=== PATIENT | female | born 1970 | race Caucasian/White ===

== ENCOUNTER 2022-10-02 14:50 | Outpatient (CLI) | payer MEDICAID, SELFPAY ==
--- NOTE | 2022-10-02 15:20 | CRLHL7_ITS ---
For Patients: As a result of the Century Cures Act, medical imaging exams and procedure reports are released immediately into your electronic medical record. You may view this report before your referring provider. If you have questions, please contact your health care provider. BILATERAL SCREENING MAMMOGRAM WITH COMPUTER-AIDED DETECTION AND TOMOSYNTHESIS TECHNIQUE: CC and MLO views were obtained. These mammographic images have been obtained using full-field digital technique. These mammographic images were interpreted with the benefit of computer-aided detection. Breast Tomosynthesis was used in this interpretation. COMPARISON FILM: 08/08/21, 04/12/20, 10/13/18. FINDINGS: There are scattered areas of fibroglandular density IMPRESSION: There is no radiographic evidence for malignancy. ASSESSMENT: BI-RADS Category 1: Negative RECOMMENDATION: Routine screening mammogram in 1 year. A lay language report of this examination will be provided to the patient. Nael Verdin M.D. Diagnostic Radiologist [email or web address] DEANA/Dictated by: Nael Verdin MD @ 10/03/2022 12:16:00 PM (Electronically Signed)
== END 2022-10-02 14:51 | disposition home or self-care (01) ==
DX: Z12.31 Encounter for screening mammogram for malignant neoplasm of breast (principal)
CPT/HCPCS: 77063; 77067

== ENCOUNTER 2023-10-13 11:14 | Outpatient (CLI) | payer MEDICAID, SELFPAY ==
--- OUTSIDE RECORDS SUMMARY | 2023-10-13 11:19 | XMS_ITS | Encounter Summary ---
Author Name Unknown Organization [facility] Address [address] [place] [address] Care Team Providers Care Media Operator Name Role Phone Monica Gonzalez MD Primary Care Provider [phone] Reason for Visit * Reason Onset Date Comments Refill 09/17/2023 VYVANSE 70 MG ca psule Encounter Details Date Type Department Care Team Description 09/17/2023 Refill [facility] [address] [place] [id number] Ros Schumacher MD [address] [place] [id number] Refill (VYVANSE 70 MG capsule) Social History Tobacco Use Types Packs/Day Years Used Date Smoking Tobacco: Former Cigarettes 0.5 1 0 10/03/2011 - 10/03/2012 Smokeless Tobacco: Never Alcohol Use Standard Drinks/Week Comments Not Currently 0 (1 standard drink = 0.6 oz pur e alcohol) maybe 2 times a year Sex and Gender Information Value Date Recorded Sex Assigned at Female 04/02/2021 3:17 PM CDT Gender Identity Female 04/02/2021 3:17 PM CDT Sexual Orientation Straight 04/02/2021 3: 17 PM CDT documented as of this encounter Nursing Notes * Interface, Out Surescripts Prov Query - 09/17/2023 2:57 PM CST VYVANSE 70 MG capsule ADHD (controlled substance) -> Medication cannot be delegated. Last qualifying visit: 08/20/2023 (with ROS SCHUMACHER) Next scheduled visit: None Last ordered by ROS SCHUMACHER: 08/20/2023 (28 days ago) QTY: 30, Refills: 0, Sig: take 1 capsule(70 mg) by mouth daily. (unchanged) [employer] Embedded Refills, Reference: [id number], 09/17/2023 2:57:26 PM LENS GRINDER, [place]: Refill Centralized Services - Primary Care ([id number]) GRINDER * Interface, Out [facility] Prov Query - 09/17/2023 2:57 PM CST No Careplan note found by [employer]. GRINDER * Renetta Lewis - 09/17/2023 2:56 PM CST Medication Refill Patient called for refill - routed refill request to central statistician mathematical GRINDER documented in this encounter Plan of Treatment Upcoming Encounters Date Type Department Care Team Description 10/26/2023 4:00 PM LENS GRINDER Appointment [facility] [address] [place] [address] Renetta Montoya, [facility] [address] [place], [place] [phone] documented as of this encounter Visit Diagnoses Diagnosis Attention deficit disorder, unspecified hyperactivity presence documented in this encounter Care Teams Media Operator Relationship Specialty Start Date End Date Monica Gonzalez MD [address] [place] [id number] PCP - General 11/27/09 documented as of this encounter
--- OUTSIDE RECORDS SUMMARY | 2023-10-13 11:19 | XMS_ITS | Encounter Summary ---
Author Name Unknown Organization [facility] Address [address] [address] Care Team Providers Care Payroll Machine Operator Name Role Phone Monica Gonzalez MD Primary Care Provider [phone] Reason for Visit * Procedure/Equipment (Routine) - Incomplete Specialty Diagnoses / Procedures Referred By Contac t Referred To Contact Diagnoses Pain in both knees, unspecified chronicity Chondromalacia of knee, unspecified laterality Procedures US Aspiration/Injection Major Joint West Robles MD [address] [place] [address] [id number] [id number] Referral ID Status Reason Start Date Expiration Date V isits Requested Visits Authorized [id number] Incomplete 09/29/2023 12/28/2024 1 1 Encounter Details Date Type Department Care Team Description 10/07/2023 3:15 PM INTERNET MARKETING EXECUTIVE Ancillary Procedure [facility] [address] [facility] [place], [place] [address] West Robles MD [address] [place] [address] [address] [place] [id number] Pain in both knees, unspecified chronicity; Chondromalacia of knee, unspecified laterality Social History Tobacco Use Types Packs/Day Years [...] PM CDT documented as of this encounter Plan of Treatment Upcoming Encounters Date Type Department Care Team Description 10/26/2023 4:00 PM INTERNET MARKETING EXECUTIVE Appointment [facility] [address] [place] [address] Renetta Montoya, [facility] [address] [place] [address] documented as of this encounter Procedures Procedure Name Priority Date/Time Associated Diagnosis Comments US ASPIRATION/INJECTIO N MAJOR JOINT Routine 10/07/2023 2:44 PM INTERNET MARKETING EXECUTIVE Pain in both knees, unspecified chronicity Chondromalacia of knee, unspecified laterality documented in this encounter Results * US Aspiration/Injection Major Joint (10/07/2023 2:44 PM INTERNET MARKETING EXECUTIVE) Anatomical Region Laterality Modality Ultrasound 10/07/2023 2:13 PM INTERNET MARKETING EXECUTIVE Impressions 10/07/2023 3:26 PM INTERNET MARKETING EXECUTIVE PROCEDURE: ??The risks, benefits, and alternatives were discussed with the patient who gave full written and verbal consent to proceed. A final pause was performed prior to the procedure to verify patient identification and site of procedure. Using local anesthesia, sterile technique, and ultrasound guidance, a 22-gauge needle was used to inject 6 mL (48 mg) of Synvisc One into the left knee joint. Needle placement was confirmed under direct visualization using ultrasound and permanent images were saved. There were no immediate complications. Narrative Procedure Note West Robles MD - 10/07/2023 IMPRESSION PROCEDURE: The risks, benefits, and alternatives were discussed with thepatient who gave full written and verbal consent to proceed. A final pausewas performed prior to the procedure to verify patient identification andsite of procedure. Using local anesthesia, sterile technique, andultrasound guidance, a 22-gauge needle was used to inject 6 mL (48 mg) ofSynvisc One into the left knee joint. Needle placement was confirmed underdirect visualization using ultrasound and permanent images were saved.There were no immediate complications. West Robles MD RAD US documented in this encounter Visit Diagnoses Diagnosis Pain in both knees, unspecified chronicity Chondromalacia of knee, unspecified laterality documented in this encounter Administered Medications Inactive Administered Medications - up to 3 most recent administrations Medication Order MAR Action Action Date Dose Rate Site hylan (SYNVISC ONE) 48 MG/6ML injection 48 mg 48 mg, Intra-articular, ONCE, On Thu10/07/23 at 1500, For 1 dose Given 10/07/2023 2:43 PM INTERNET MARKETING EXECUTIVE 48 mg documented in this encounter Care Teams Payroll Machine Operator Relationship Specialty Start Date End Date Monica Gonzalez MD [address] [place] [address] PCP - General 11/27/09 documented as of this encounter
--- OUTSIDE RECORDS SUMMARY | 2023-10-13 11:19 | XMS_ITS | Encounter Summary ---
Author Name Unknown Organization [facility] Address [address], [place] [address] Care Team Providers Care Reference And Instruction Librarian Name Role Phone Monica Gonzalez MD Primary Care Provider [phone] Reason for Visit * Procedure/Equipment (Routine) - Incomplete Specialty Diagnoses / Procedures Referred By Contac t Referred To Contact Diagnoses Pain in both knees, unspecified chronicity Procedures XR Knee Rt 3 Views West Robles MD [address] [place] [address] Referral ID Status Reason Start Date Expiration Date V isits Requested Visits Authorized [id number] Incomplete 09/03/2023 12/02/2024 1 1 Encounter Details Date Type Department Care Team Description 09/03/2023 2:45 PM GROVE WORKER Ancillary Procedure [facility] [address] [place], [place] [phone] West Robles MD [address] [place] [address] Social History Tobacco Use Types Packs/Day Years [...] Department Care Team Description 10/26/2023 4:00 PM GROVE WORKER Appointment [facility] [address] [place] [address] Renetta Montoya, [facility] [address] [place] [address] documented as of this encounter Procedures Procedure Name Priority Date/Time Associated Diagnosis Comments XR KNEE RT 3 VIEWS Routine 09/03/2023 3: 01 PM GROVE WORKER Pain in both knees, unspecified chronicity XR KNEE LT 3 VIEWS Routine 09/03/2023 3: 01 PM GROVE WORKER Pain in both knees, unspecified chronicity documented in this encounter Results * XR Knee Rt 3 Views (09/03/2023 3:01 PM GROVE WORKER) Anatomical Region Laterality Modality Lower Extremity, Knee Digital Ra diography 09/03/2023 3:01 PM GROVE WORKER Impressions 09/03/2023 3:03 PM GROVE WORKER COMPARISON: ??01/16/2022 FINDINGS: ??Right knee 3 views: Minimal narrowing of the medial compartment. No significant secondary degenerative changes. Bones and joint spaces appear otherwise normal. No fracture or effusion. Left knee 3 views: Bones and joint spaces appear within normal limits. Narrative Procedure Note Vikas Serna MD - 09/03/2023 IMPRESSION COMPARISON: 01/16/2022 FINDINGS: Right knee 3 views: Minimal narrowing of the medialcompartment. No significant secondary degenerative changes. Bones andjoint spaces appear otherwise normal. No fracture or effusion. Left knee 3 views: Bones and joint spaces appear within normal limits. West Robles MD RAD GD * XR Knee Lt 3 Views (09/03/2023 3:01 PM GROVE WORKER) Anatomical Region Laterality Modality Lower Extremity, Knee Digital Ra diography 09/03/2023 3:01 PM GROVE WORKER Impressions 09/03/2023 3:03 PM GROVE WORKER COMPARISON: ??01/16/2022 FINDINGS: ??Right knee 3 views: Minimal narrowing of the medial compartment. No significant secondary degenerative changes. Bones and joint spaces appear otherwise normal. No fracture or effusion. Left knee 3 views: Bones and joint spaces appear within normal limits. Narrative Procedure Note Vikas Serna MD - 09/03/2023 IMPRESSION COMPARISON: 01/16/2022 FINDINGS: Right knee 3 views: Minimal narrowing of the medialcompartment. No significant secondary degenerative changes. Bones andjoint spaces appear otherwise normal. No fracture or effusion. Left knee 3 views: Bones and joint spaces appear within normal limits. West Robles MD RAD GD documented in this encounter Visit Diagnoses Not on filedocumented in this encounter Care Teams Reference And Instruction Librarian Relationship Specialty Start Date End Date Monica Gonzalez MD [address] [place] [address] PCP - General 11/27/09 documented as of this encounter
--- OUTSIDE RECORDS SUMMARY | 2023-10-13 11:19 | XMS_ITS | Encounter Summary ---
Author Name Unknown Organization [facility] Address [address], [place] [address] Care Team Providers Care Automotive Glazier Name Role Phone Monica Gonzalez MD Primary Care Provider [phone] Reason for Visit * Procedure/Equipment (Routine) - Incomplete Specialty Diagnoses / Procedures Referred By Contac t Referred To Contact Diagnoses Pain in both knees, unspecified chronicity Procedures XR Knee Rt 3 Views West Robles MD [address] [facility] [place] [address] Referral ID Status Reason Start Date Expiration Date V isits Requested Visits Authorized [id number] Incomplete 09/03/2023 12/02/2024 1 1 Encounter Details Date Type Department Care Team Description 09/03/2023 2:35 PM PALLET STONE POSITIONER Ancillary Procedure [facility] [address] [place], [place] [address] West Robles MD [address] [address] [place] [id number] Pain in both knees, unspecified chronicity Social History Tobacco Use Types Packs/Day Years [...] Department Care Team Description 10/26/2023 4:00 PM PALLET STONE POSITIONER Appointment [facility] [address] [place] [address] Renetta Montoya, [facility] [address] [place], [place] [phone] documented as of this encounter Procedures Procedure Name Priority Date/Time Associated Diagnosis Comments XR KNEE RT 3 VIEWS Routine 09/03/2023 3: 01 PM PALLET STONE POSITIONER Pain in both knees, unspecified chronicity XR KNEE LT 3 VIEWS Routine 09/03/2023 3: 01 PM PALLET STONE POSITIONER Pain in both knees, unspecified chronicity documented in this encounter Results * XR Knee Rt 3 Views (09/03/2023 3:01 PM PALLET STONE POSITIONER) Anatomical Region Laterality Modality Lower Extremity, Knee Digital Ra diography 09/03/2023 3:01 PM PALLET STONE POSITIONER Impressions 09/03/2023 3:03 PM PALLET STONE POSITIONER COMPARISON: ??01/16/2022 FINDINGS: ??Right knee 3 views: [...] Knee Lt 3 Views (09/03/2023 3:01 PM PALLET STONE POSITIONER) Anatomical Region Laterality Modality Lower Extremity, Knee Digital Ra diography 09/03/2023 3:01 PM PALLET STONE POSITIONER Impressions 09/03/2023 3:03 PM PALLET STONE POSITIONER COMPARISON: ??01/16/2022 FINDINGS: ??Right knee 3 views: [...] GD documented in this encounter Visit Diagnoses Diagnosis Pain in both knees, unspecified chronicity documented in this encounter Care Teams Automotive Glazier Relationship Specialty Start Date End Date Monica Gonzalez MD [address] [place] [address] PCP - General 11/27/09 documented as of this encounter
--- OUTSIDE RECORDS SUMMARY | 2023-10-13 11:19 | XMS_ITS | Encounter Summary ---
Author Name Unknown Organization [facility] Address [address], [place] [address] Care Team Providers Care Tool Dispatcher Name Role Phone Monica Gonzalez MD Primary Care Provider [phone] Reason for Visit * Procedure/Equipment (Routine) - Incomplete Specialty Diagnoses / Procedures Referred By Contac t Referred To Contact Diagnoses Pain in both knees, unspecified chronicity Chondromalacia of knee, unspecified laterality Procedures US Aspiration/Injection Major Joint West Robles MD [address] [place] [address] [place] [id number] Referral ID Status Reason Start Date Expiration Date V isits Requested Visits Authorized [id number] Incomplete 09/29/2023 12/28/2024 1 1 Encounter Details Date Type Department Care Team Description 10/07/2023 2:30 PM RICE DRIER OPERATOR Ancillary Procedure [facility] [address], [place] [address] West Robles MD [address] [place] [address] [address] [place] [address] Pain in both knees, unspecified chronicity; Chondromalacia [...] Department Care Team Description 10/26/2023 4:00 PM RICE DRIER OPERATOR Appointment [facility] [address] [place] [address] Renetta Montoya, [facility] [address] [place] [address] documented as of this encounter Procedures Procedure Name Priority Date/Time Associated Diagnosis Comments US ASPIRATION/INJECTIO N MAJOR JOINT Routine 10/07/2023 2:45 PM RICE DRIER OPERATOR Pain in both knees, unspecified chronicity Chondromalacia of knee, unspecified laterality documented in this encounter Results * US Aspiration/Injection Major Joint (10/07/2023 2:45 PM RICE DRIER OPERATOR) Anatomical Region Laterality Modality Ultrasound 10/07/2023 2:13 PM RICE DRIER OPERATOR Impressions 10/07/2023 3:27 PM RICE DRIER OPERATOR PROCEDURE: ??The risks, benefits, and alternatives were discussed with the patient who gave full written and verbal consent to proceed. A final pause was performed prior to the procedure to verify patient identification and site of procedure. Using local anesthesia, sterile technique, and ultrasound guidance, a 22-gauge needle was used to inject 6 mL (48 mg) of Synvisc One into the right knee joint. Needle placement was confirmed under [...] mL (48 mg) ofSynvisc One into the right knee joint. Needle placement was confirmedunder direct visualization using ultrasound and permanent images weresaved. There were no immediate complications. West Robles MD [...] at 1500, For 1 dose Given 10/07/2023 2:44 PM RICE DRIER OPERATOR 48 mg documented in this encounter Care Teams Tool Dispatcher Relationship Specialty Start Date End Date Monica Gonzalez MD [address] [place] [address] PCP - General 11/27/09 documented as of this encounter
--- OUTSIDE RECORDS SUMMARY | 2023-10-13 11:19 | XMS_ITS | Encounter Summary ---
Author Name Unknown Organization [facility] Address [address], [place] [address] Care Team Providers Care Mortar Man Name Role Phone Monica Gonzalez MD Primary Care Provider [phone] Reason for Referral * Procedure/Equipment (Routine) - Incomplete Specialty Diagnoses / Procedures Referred By Contac t Referred To Contact Diagnoses Pain in both knees, unspecified chronicity Chondromalacia of knee, unspecified laterality Procedures US Aspiration/Injection Major Joint West Robles MD [address] [place] [address] [place] [address] Referral ID Status Reason Start Date Expiration Date V isits Requested Visits Authorized [id number] Incomplete 09/29/2023 12/28/2024 1 1 CUTTER * Procedure/Equipment (Routine) - Incomplete Specialty Diagnoses / Procedures Referred By Contac t Referred To Contact Diagnoses Pain in both knees, unspecified chronicity Chondromalacia of knee, unspecified laterality Procedures US Aspiration/Injection Major Joint West Robles MD [address] [place] [address] Referral ID Status Reason Start Date Expiration Date V isits Requested Visits Authorized [id number] Incomplete 09/29/2023 12/28/2024 1 1 CUTTER Encounter Details Date Type Department Care Team Description 09/29/2023 Notes/Orders [facility] [address] [facility] [place] [address] West Robles MD [address] [facility] [place] [address] Pain in both knees, unspecified chronicity (Primary Dx); Chondromalacia of knee, unspecified laterality Social History [...] Department Care Team Description 10/26/2023 4:00 PM COAL CUTTER Appointment [facility] [address] [place] [address] [facility] [address] [place] [address] documented as of this encounter Results * US Aspiration/Injection Major Joint (10/07/2023 2:45 PM COAL CUTTER) Anatomical Region Laterality Modality Ultrasound 10/07/2023 2:13 PM COAL CUTTER Impressions 10/07/2023 3:27 PM COAL CUTTER PROCEDURE: ??The risks, benefits, and alternatives were [...] immediate complications. West Robles MD RAD US * US Aspiration/Injection Major Joint (10/07/2023 2:44 PM COAL CUTTER) Anatomical Region Laterality Modality Ultrasound 10/07/2023 2:13 PM COAL CUTTER Impressions 10/07/2023 3:26 PM COAL CUTTER PROCEDURE: ??The risks, benefits, and alternatives were [...] Diagnoses Diagnosis Pain in both knees, unspecified chronicity- Primary Chondromalacia of knee, unspecified laterality Pain in both knees, unspecified chronicity Chondromalacia of knee, unspecified laterality Pain in both knees, unspecified chronicity Chondromalacia of knee, unspecified laterality documented in this encounter Care Teams Mortar Man Relationship Specialty Start Date End Date Monica Gonzalez MD [address] [place] [address] PCP - General 11/27/09 documented as of this encounter
--- OUTSIDE RECORDS SUMMARY | 2023-10-13 11:19 | XMS_ITS | Clinical Summary ---
Author Name Unknown Organization [facility] Address [address] [place] [address] Care Team Providers Care Business Applications Developer Name Role Phone Monica Gonzalez MD Primary Care Provider [phone] Source Comments You are receiving this document as you are listed as the primary care provider,follow-up provider, or the patient has been referred to you for consultation.This is in compliance with the Medicare and[facility] E[facility] Incentive Program,which states Providers who transition their patient to another setting of careor provider of care or refers their patient to another provider of care shouldprovide summary care record for each transition of care or referral. [facility] Allergies No known active allergies Medications Medication Sig Dispensed Refills Start Date End Date Status MULTI-DAY VITAMINS OR None Entered 0 Active Probiotic Product (PROBIOTIC DAILY OR) Insync probiotic 0 Active Phentermine HCl (ADIPEX-P) 37.5 MG tabletIndications:W eight gain Take 1 Tab by mouth daily before breakfast. 30 Tab 3 01/20/2018 Active cholecalciferol (VITAMIN D3) 125 MCG (5000 UT) capsule 0 Active valACYclovir (VALTREX) 1 g tablet Take 0.5 Tablets (500 mg) by mouth daily. 45 Tablet 2 04/22/2022 Active topiramate (TOPAMAX) 100 MG tablet Take 1 Tablet (100 mg) by mouth two times a day. 0 01/16/2022 Active minoxidil (LONITEN) 2.5 MG tablet Take 1 Tablet (2.5 mg) by mouth two times a day. 0 06/27/2022 Active sodium fluoride dental (PREVIDENT) 1.1 % gel Apply thin ribbon to teeth with toothbrush for at least 1 minute. Spit out gel and wait to eat or drink for 30 minuets. 60 g 6 02/17/2023 Active tretinoin (RETIN-A) 0.05 % cream APPLY THIN FILM TO AFFECTED AREAS NIGHTLY 45 g 3 06/08/2023 Active losartan (COZAAR) 50 MG tablet Take 1 Tablet (50 mg) by mouth daily. 0 07/13/2023 Active ALBUterol sulfate HFA (VENTOLIN HFA) 108 (90 Base) MCG/ACT inhaler Inhale 1-2 Puffs every 4 hours as needed for Wheezing. 36 g 3 08/20/2023 Active buPROPion (WELLBUTRIN XL) 150 MG 24 hour release tablet Take 3 Tablets (450 mg) by mouth daily. 270 Tablet 3 08/20/2023 Active VYVANSE 70 MG capsuleIndications: Attention deficit disorder, unspecified hyperactivity presence Take 1 Capsule (70 mg) by mouth daily. 30 Capsule 0 09/17/2023 Active VYVANSE 70 MG capsuleIndications: Attention deficit disorder, unspecified hyperactivity presence Take 1 Capsule (70 mg) by mouth daily. 30 Capsule 0 08/20/2023 3 Discontinue d(*Med change OR same med OR reorder, new dose/direct ions) Active Problems Problem Noted Date Diagnosed Date Chondromalacia of knee 09/03/2023 Osteopenia 10/20/2022 White coat syndrome with diagnosis of hypertensi on 01/20/2022 Migraine without aura and wi thout status migrainosus, not intractable 03/19/2020 Chronic left-sided low back pain without sciatic a 03/19/2020 Bilateral chronic knee pain 10/31/2019 Depression with anxiety 01/22/2016 Screening for malignant neoplasm of cervix 12/27 Overview: 2009 NILM 2010 ASCUS hpv negative 2011 NILM 2015 NILM, hpv negative 2019 NILM HPV negative 49 y.o. PLAN, per ASCCP Guidelines: Cotest 03/2025 History of basal cell cancer 08/28/2014 Liver cyst 12/30/2013 Overview: Mri done- would like u/s to recheck in 6 months U/s 05/2023- appeared smaller- appears benign ADD (attention deficit disorder) 10/05/2013 Overview: Stable on vyvanse Family history of skin cancer 11/05/2011 AK (actinic keratosis) 11/05/2011 Family history of breast cancer 09/04/2010 Herpes simplex virus (HSV) infection 04/27/2006 Overview: Epic Resolved Problems Problem Noted Date Diagnosed Date Resolved Date IUD (intrauterine device) in place 04/04/2021 10/08/2022 Overview: Paragard 05/2017 White coat syndrome without hypertension 03/15/2020 01/20/2022 Anxiety 10/05/2013 11/22/2017 Tobacco use disorder 10/05/2013 015 Ulnar nerve entrapment at elbow 10/05/2013 12/19/2014 Smoker 11/05/2011 05/18/2013 Hair loss 09/04/2010 11/20/2012 Major depressive disorder, r ecurrent episode, severe 12/04/2009 09/04/2010 Overview: Epic Overweight 12/04/2009 09/04/2010 Depressive disorder 12/06/2007 12/05/19 10 Overview: 10/29-Wellbutrin ; Depressive disorder, not elsewhere classified (HRC) Breast hypertrophy 10/30/2006 2 Contraceptive management 04/27/2006 Overview: Triphasil worked well-when switched to generic did not like this Loestrin-spotted continuously 11/26-Guera Epic Calculus of kidney 11/06/2005 6 Encounters Date Type Department Care Team Description 10/07/2023 3:15 PM FLOWERS SALESPERSON Ancillary Procedure [facility] [address] [place] [address] West Robles MD Pain in both knees, unspecified chronicity; Chondromalacia of knee, unspecified laterality 10/07/2023 2:30 PM FLOWERS SALESPERSON Ancillary Procedure [facility] [address] [place] [address] West Robles MD Pain in both knees, unspecified chronicity; Chondromalacia of knee, unspecified laterality 09/29/2023 Notes/Orders [facility] [address] [place] [id number] West Robles MD Pain in both knees, unspecified chronicity (Primary Dx); Chondromalacia of knee, unspecified laterality 09/17/[address] [phone] Stephanie Schumacher MD Refill (VYVANSE 70 MG capsule) 09/03/2023 2:45 PM FLOWERS SALESPERSON Ancillary Procedure [facility] [address] [place] [id number] West Robles MD 09/03/2023 2:40 PM FLOWERS SALESPERSON Office Visit [facility] [address] [place] [id number] West Robles MD Chondromalacia of knee, unspecified laterality (Primary Dx); Pain in both knees, unspecified chronicity 09/03/2023 2:35 PM FLOWERS SALESPERSON Ancillary Procedure [facility] [address] [place] [id number] West Robles MD Pain in both knees, unspecified chronicity 08/20/2023 4:40 PM FLOWERS SALESPERSON Lab Visit [facility] [address] [place] [phone] Memory changes 08/20/2023 4:25 PM FLOWERS SALESPERSON Ancillary Procedure [facility] [address] [place] [phone] Stephanie Schumacher MD Left hip pain 08/20/2023 3:20 PM FLOWERS SALESPERSON Office Visit [address] [phone] Stephanie Schumacher MD Attention deficit disorder, unspecified hyperactivity presence (Primary Dx); Weight gain; Lesion of lip; Left hip pain; Chronic pain of both knees; PTSD (post-traumatic stress disorder) (HRC); Depression with anxiety (HRC); Memory changes; Encounter for immunization; Hair loss 08/20/2023 E-Visit [facility] [address] [place] [address] Mychart, Generic Provider 07/27/2023 2:40 PM FLOWERS SALESPERSON Office Visit [facility] [address] [place] [address] Patricia Tuttle N, OD Examination of eyes and vision (Primary Dx); Presbyopia; Dermatochalasis of both upper eyelids 07/16/2023 Refill [facility] [address] [place] [address] Monica Gonzalez MD Refill ( lisdexamfetamine (VYVANSE) 70 MG capsule) from Last 3 Months Immunizations Name Administration Dates Next Due Flu Vac (3+ yrs) 06/30/2012, 1,06/04/2010,2008,08/02/2008,07/08/2007,08/03/2006,1 10/06/2004,09/01/2002,08/31/2001 Flu Vac Preserv Free (3+yrs) 06/04/2010 Fluzone Qiv Multidose Vial 0 .25 (6-35 Mos) 05/18/2013 [id number] 08/22/2009 H1n1 Laiv Medimmune 2-49 Yr (Intranasal) 08/22/2009 HepB Adult (Engerix-B, 20+ y rs, 3 dose series) 05/02/2002,08/31/2001,04/08/2001 Influenza (Flucelvax), Prese rv Free QIV 06/26/2023,05/29/2022,06/13/2021,2019 Influenza IIV3 (Trivalent) F luzone Highdose, 65+ Yrs (05186) 04/21/2013 Influenza IIV4 (Quadrivalent ) 0.5mL (20312) 06/08/2019,06/07/2018,06/10/2017,2014,05/31/2014,05/18/2013 Influenza Vaccine Q/LAIV Int ranasal 2-49 yrs (Imm Clinic) 05/31/2014 Influenza, Unspecified Formulation 07/02/2016 Gifty COVID-19 Vaccine 07/30/2021,12/25/2020 MCV4 Migdalia 2m.+ (two vial) 10/31/2016 Pfizer / 12+ 08/20/2023 Pfizer Bivalent 12+ 08/07/2022 Td 09/20/2000,04/08/2000 Td (7+ yrs) 06/08/2019 Tdap 05/25/2009 Varicella 11/23/2001(Deferred: Immune by Alexei hardin) Zoster RZV (Shingrix) 06/26/2023,02/20/2023 Family History * Patient is adopted Medical History Relation Name Comments Coronary Artery Disease Father Alcohol/Drug Abuse Mother Coronary Artery Disease Maternal Grandfather CHF Coronary Artery Disease Maternal Grandmother and MGF Glaucoma Maternal Grandmother Diabetes, Type II Other 1 MA Cancer, Breast Other 2 MGMA, MA with breast and ovarian, maternal cousin Cancer, Colon Negative Family History Cataract Negative Family History Hypertension Negative Family History Macular Degeneration Negative Family History Thyroid Disorder Negative Family History Relation Name Status Comments Father Alive Mother Alive Daughter Alive Ricky Maternal Grandfather Maternal Grandmother Other 1 Other 2 Paternal Grandfather Paternal Grandmother Sister 1 Alive Sister 2 Alive hafl Sister 3 Alive half Sister 4 Alive half Sister 5 Alive half Social History Tobacco Use Types Packs/Day Years [...] Orientation Straight 04/02/2021 3: 17 PM CDT Last Filed Vital Signs Vital Sign Reading Time Taken Comments Blood Pressure 130/85 08/20/2023 3:25 PM FLOWERS SALESPERSON Pulse 103 08/20/2023 3:25 PM FLOWERS SALESPERSON Temperature 36.7 ??C (98.1 ??F) 05/14/2023 2:34 PM CD T Respiratory Rate 18 10/17/2022 4:58 PM FLOWERS SALESPERSON Oxygen Saturation 100% 10/17/2022 4:58 PM FLOWERS SALESPERSON Inhaled Oxygen Concentration - - Weight 65.8 kg (145 lb) 09/03/2023 2:28 PM FLOWERS SALESPERSON Height 172.7 cm (5' 8) 09/03/2023 2:28 PM FLOWERS SALESPERSON Body Mass Index 22.05 09/03/2023 2:28 PM FLOWERS SALESPERSON Plan of Treatment Upcoming Encounters Date Type Department Care Team Description 10/26/2023 4:00 PM FLOWERS SALESPERSON Appointment [facility] [address] [place] [address] Renetta Montoya, [facility] [address] [place] [address] Health Maintenance Due Date Last Done Comments Adult Preventive Visit 04/04/2022 , 03/15/2020, 12/19/2014, Additional history exists Mammogram 08/08/2022 08/08/2021, 06/22, 05/18/2013, Additional history exists FIT Colon Cancer Screening 05/30/202405/30, 06/08/2022, 05/28/2021 Cholesterol 03/15/2025 03/15/2020, 11/21, 05/23/2009, Additional history exists Cervical Cancer Screening 04/11/20252019, 12/19/2014, 11/05/2011, Additional history exists DTaP/Tdap/Td (3 - Tdap) 06/08/2029 06/08/20 19, 05/25/2009, 09/20/2000, Additional history exists HepB Completed 05/02/2002, 08/21, 04/08/2001 MCV4 Aged Out 10/31/2016 No longer eligi ble based on patient's age to complete this topic HIV Screening (Preventive Services) Completed 08/16/2021, 05/18/2013, 04/26/2012, Additional history exists Hep C Screening (Preventive Services) Completed 08/16/2021, 05/18/2013, 04/26/2012, Additional history exists Influenza Completed 06/26/2023, 04/2022, 06/13/2021, Additional history exists Zoster/Shingles Completed 06/26/2023, 02/20/2023 COVID-19 Vaccine Completed 08/20/2023, , 07/30/2021, Additional history exists HepA Aged Out No longer eligi ble based on patient's age to complete this topic Hib Aged Out No longer eligi ble based on patient's age to complete this topic IPV (Polio) Aged Out No longer eligi ble based on patient's age to complete this topic Pneumococcal Aged Out No longer eligi ble based on patient's age to complete this topic Procedures Procedure Name Priority Date/Time Associated Diagnosis Comments US ASPIRATION/INJECTIO N MAJOR JOINT Routine 10/07/2023 2:45 PM [employer]OW[employer] SALESPERSON Pain in both knees, unspecified chronicity Chondromalacia of knee, unspecified laterality US ASPIRATION/INJECTIO N MAJOR JOINT Routine 10/07/2023 2:44 PM [employer]OWERS SALESPERSON Pain in both knees, unspecified chronicity Chondromalacia of knee, unspecified laterality XR KNEE RT 3 VIEWS Routine 09/03/2023 3: 01 PM [employer]ERS SALESPERSON Pain in both knees, unspecified chronicity XR KNEE LT 3 VIEWS Routine 09/03/2023 3: 01 PM FLOWERS SALESPERSON Pain in both knees, unspecified chronicity VITAMIN B12 ONLY Routine 08/20/2023 4:42 PM FLOWERS SALESPERSON Memory changes XR PELVIS AP W AP/LAT HIP LT Routine 08/20/2023 4:34 PM FLOWERS SALESPERSON Left hip pain from Last 3 Months Results * US Aspiration/Injection Major Joint (10/07/2023 2:45 PM FLOWERS SALESPERSON) Only the most recent of2 resultswithin the time period is included. Anatomical Region Laterality Modality Ultrasound 10/07/2023 2:13 PM FLOWERS SALESPERSON Impressions 10/07/2023 3:27 PM FLOWERS SALESPERSON PROCEDURE: ??The risks, benefits, and alternatives were [...] complications. West Robles MD RAD US * XR Knee Rt 3 Views (09/03/2023 3:01 PM FLOWERS SALESPERSON) Anatomical Region Laterality Modality Lower Extremity, Knee Digital Ra diography 09/03/2023 3:01 PM FLOWERS SALESPERSON Impressions 09/03/2023 3:03 PM FLOWERS SALESPERSON COMPARISON: ??01/16/2022 FINDINGS: ??Right knee 3 views: [...] Knee Lt 3 Views (09/03/2023 3:01 PM FLOWERS SALESPERSON) Anatomical Region Laterality Modality Lower Extremity, Knee Digital Ra diography 09/03/2023 3:01 PM FLOWERS SALESPERSON Impressions 09/03/2023 3:03 PM FLOWERS SALESPERSON COMPARISON: ??01/16/2022 FINDINGS: ??Right knee 3 views: [...] limits. West Robles MD RAD GD * Vitamin B12 Only (08/20/2023 4:42 PM FLOWERS SALESPERSON) Vitamin B12 784 213 - 816 pg/mL 08/20/2023 7:42 PM FLOWERS SALESPERSON [facility] Blood Venipuncture / Unknown 08/20/2023 4:42 PM FLOWERS SALESPERSON 08/20/2023 4:42 PM FLOWERS SALESPERSON Stephanie Schumacher MD LAB[facility] [address] [phone] * XR Pelvis AP W AP/Lat Hip Lt (08/20/2023 4:34 PM FLOWERS SALESPERSON) Anatomical Region Laterality Modality Pelvis, Hip Computed Radiogr aphy 08/20/2023 4:34 PM FLOWERS SALESPERSON Narrative 08/20/2023 7:31 PM FLOWERS SALESPERSON EXAM: XR PELVIS AP W AP/LAT HIP LT LOCATION: [facility] DATE: 08/20/2023 INDICATION: Left hip pain, Pain in left hip, PAIN COMPARISON: None. IMPRESSION: Degenerative change in the bilateral hips. Moderate degenerative change in the bilateral sacroiliac joints. No fracture or dislocation. Procedure Note Jay Damian MD - 08/20/2023 EXAM: XR PELVIS AP W AP/LAT HIP LT [facility] DATE: 08/20/2023 INDICATION: Left hip pain, Pain in left hip, PAIN COMPARISON: None. IMPRESSION: Degenerative change in the bilateral hips. Moderatedegenerative change in the bilateral sacroiliac joints. No fracture ordislocation. Stephanie Schumacher MD RAD GD from Last 3 Months Advance Directives Latest Code Status on File Code Status Date Activated Date Inactivated Comments None 10/12/2003 2:45 PM 10/12/2003 3:45 PM Care Teams Business Applications Developer Relationship Specialty Start Date End Date Monica Gonzalez MD [address] [place] [id number] PCP - General 11/27/09
--- OUTSIDE RECORDS SUMMARY | 2023-10-13 11:19 | XMS_ITS | Encounter Summary ---
Author Name Unknown Organization [facility] Address [address] [address] Care Team Providers Care Respiratory Assistant Name Role Phone Monica Gonzalez MD Primary Care Provider [phone] Reason for Referral * Procedure/Equipment (Routine) - Incomplete Specialty Diagnoses / Procedures Referred By Contac t Referred To Contact Diagnoses Pain in both knees, unspecified chronicity Chondromalacia of knee, unspecified laterality Procedures FL Injection Knee Lt US Aspiration/Injection Major Joint Albertina Robles MD [address] [place] [address] Referral ID Status Reason Start Date Expiration Date V isits Requested Visits Authorized [id number] Incomplete 09/03/2023 12/02/2024 1 1 TH PROFESSOR * Procedure/Equipment (Routine) - Incomplete Specialty Diagnoses / Procedures Referred By Contac t Referred To Contact Diagnoses Pain in both knees, unspecified chronicity Chondromalacia of knee, unspecified laterality Procedures FL Aspiration Knee Lt US Aspiration/Injection Major Joint Albertina Robles MD [address] [place] [address] Referral ID Status Reason Start Date Expiration Date V isits Requested Visits Authorized [id number] Incomplete 09/03/2023 12/02/2024 1 1 TH PROFESSOR * Procedure/Equipment (Routine) - Incomplete Specialty Diagnoses / Procedures Referred By Contac t Referred To Contact Diagnoses Pain in both knees, unspecified chronicity Procedures XR Knee Rt 3 Views Albertina Robles MD [address] [place] [address] Referral ID Status Reason Start Date Expiration Date V isits Requested Visits Authorized [id number] Incomplete 09/03/2023 12/02/2024 1 1 TH PROFESSOR * Procedure/Equipment (Routine) - Incomplete Specialty Diagnoses / Procedures Referred By Contac t Referred To Contact Diagnoses Pain in both knees, unspecified chronicity Procedures XR Knee Lt 3 Views Albertina Robles MD [address] [place] [address] Referral ID Status Reason Start Date Expiration Date V isits Requested Visits Authorized [id number] Incomplete 09/03/2023 12/02/2024 1 1 TH PROFESSOR Reason for Visit * Reason Comments Knee Problem Bilateral Encounter Details Date Type Department Care Team Description 09/03/2023 2:40 PM HEALTH PROFESSOR Office Visit [facility] [address] [place] [address] Albertina Robles MD [address] [place] [id number] Chondromalacia of knee, unspecified laterality (Primary Dx); Pain in both knees, unspecified chronicity Social [...] PM CDT documented as of this encounter Last Filed Vital Signs Vital Sign Reading Time Taken Comments Blood Pressure - - Pulse - - Temperature - - Respiratory Rate - - Oxygen Saturation - - Inhaled Oxygen Concentration - - Weight 65.8 kg (145 lb) 09/03/2023 2:28 PM HEALTH PROFESSOR Height 172.7 cm (5' 8) 09/03/2023 2:28 PM HEALTH PROFESSOR Body Mass Index 22.05 09/03/2023 2:28 PM HEALTH PROFESSOR documented in this encounter Progress Notes * Albertina Robles MD - 09/03/2023 12:00 AM CST NAME: ARACELI NAVARRO CSN: [id number] CLINIC NOTE DATE OF SERVICE: 09/03/2023 : 1970 CHIEF COMPLAINT: Left hip pain and bilateral knee pain and Orthobiologics consultation. HISTORY OF PRESENT ILLNESS: 52-year-old female, who presents for evaluation of bilateral knee pain and left hip pain that has been present for quite some time. She states that she has had knee pain for over 5 years, right greater than left knee. States that the pain is kind of inside her knee. It has been much more painful in the last year. She has had cortisone injection for years that have beensuccessful for about a year, but the most recent one being 2 months ago did not really seem to haveany effect. She has tried knee sleeves in the past, ibuprofen, Voltaren injections. She has never had hyaluronic acid. Her knees are more painful when she is bending them, climbing stairs, or kneeling. She states she cannot kneel anymore when she is working. She has not had surgery on her knees. Her knees do make some noise. She discussed treatment with Dr. Schumacher, who recommended consideration for a PRP injection. She is here to discuss that option. In addition, she has had pain in her left hip joint that has been present for the last couple months. She describes the pain as being in the front portion of her hip and aggravated by getting in and out of a car. She had a hip x-ray that showed arthritis in her hip. PAST MEDICAL HISTORY: Significant for knee arthritis, treated with cortisone injections, knee sleeve. 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 PHYSICAL EXAM: She is awake, alert female. Sclerae nonicteric. She has fair eye contact. VASCULAR: Cap refill is normal. NEUROLOGIC: Sensation is intact to light touch. SKIN: Without erythema or ecchymosis. MUSCULOSKELETAL: Examination of her left hip, she is nontender over the pubic rami, ASIS, AIIS, iliac crest and greater trochanter. She is tender to palpation over the inguinal ligament. She has a positive log roll test. She has no pain with active hip flexion. She has pain with passive internal and external rotation and a positive scour test. Hip strength is normal. She ambulates without difficulty. MUSCULOSKELETAL: Examination of both her knees reveal no knee effusion. She is nontenderalong the patellar retinaculum, patellar tendon, medial and lateral joint line. Extensor mechanism is intact. Range of motion 0 to 120 degrees of knee flexion. Negative posterior drawer. Negative Petrona. No pain or laxity with varus/valgus load of her knee. Negative Erin. IMAGING STUDIES: Radiographic studies were obtained, read by Radiology. My interpretation, there ismild joint space narrowing in the medial compartment. Prior MRI of her right knee was reviewed [id number], showing chondral defect, some degenerative meniscus damage of her medial meniscus as well as some chondral fissuring. X-rays of her hip that were nonweightbearing films show some joint space degenerative changes in the femoroacetabular joint. ASSESSMENT: 1.Bilateral knee chondromalacia. 2.Left hip arthritis. PLAN: 1.I educated the patient regarding her condition and management. We discussed standard treatment options available to her including low-impact exercise, physical therapy, [id number] pain medication, bracing and injections, namely hyaluronic acid in her knees, a cortisone injection in her hip.We talked about alternatives including PRP, which is not covered by insurance, requires 900 dollarsprepayment, is considered investigational by the FDA, but does have literature support for its use.The patient had many questions which were answered to her satisfaction. Ultimately, she wants to proceed with hyaluronic acid injections into both knees under ultrasound guidance and her insurance does cover her Synvisc-One, which we will do in Radiology. 2.She will wait on any kind of intervention for her hip, but should that not improve, she can undergo an ultrasound-guided left hip cortisone injection. Should she not get relief from hyaluronic acidinjections in her knees over the next 4 to 6 weeks, she could undergo leukocyte-poor PRP injectionsunder ultrasound guidance into both her knees. She verbalized understanding. Thank you for allowing me to participate in this patient's care. ALBERTINA ROBLES MD CWM/AQS /[id number] cc:ROS SCHUMACHER MD [address] [place] [address] TH PROFESSOR documented in this encounter Plan of Treatment Upcoming Encounters Date Type Department Care Team Description 10/26/2023 4:00 PM HEALTH PROFESSOR Appointment [facility] [address] [place], [place] [phone] Renetta Montoya, [facility] [address] [place], [place] [phone] Scheduled Orders Name Type Priority Associated Diagnoses Orde r Schedule FL Aspiration Knee Lt Imaging New Routine Pain in both knees, unspecified chronicity Chondromalacia of knee, unspecified laterality Expected: 09/03/2023 (Approximate), Expires: 09/02/2024 FL Injection Knee Lt Imaging New Routine Pain in both knees, unspecified chronicity Chondromalacia of knee, unspecified laterality Expected: 09/03/2023 (Approximate), Expires: 09/02/2024 documented as of this encounter Results * XR Knee Rt 3 Views (09/03/2023 3:01 PM HEALTH PROFESSOR) Anatomical Region Laterality Modality Lower Extremity, Knee Digital Ra diography 09/03/2023 3:01 PM HEALTH PROFESSOR Impressions 09/03/2023 3:03 PM HEALTH PROFESSOR COMPARISON: ??01/16/2022 FINDINGS: ??Right knee 3 views: [...] and joint spaces appear within normal limits. Albertina Robles MD RAD GD * XR Knee Lt 3 Views (09/03/2023 3:01 PM HEALTH PROFESSOR) Anatomical Region Laterality Modality Lower Extremity, Knee Digital Ra diography 09/03/2023 3:01 PM HEALTH PROFESSOR Impressions 09/03/2023 3:03 PM HEALTH PROFESSOR COMPARISON: ??01/16/2022 FINDINGS: ??Right knee 3 views: [...] and joint spaces appear within normal limits. Albertina Robles MD RAD GD documented in this encounter Visit Diagnoses Diagnosis Chondromalacia of knee, unspecified laterality- Primary Pain in both knees, unspecified chronicity documented in this encounter Care Teams Respiratory Assistant Relationship Specialty Start Date End Date Monica Gonzalez MD [address] [place] [address] PCP - General 11/27/09 documented as of this encounter
--- OUTSIDE RECORDS SUMMARY | 2023-10-13 11:20 | XMS_ITS | Encounter Summary ---
Author Name Unknown Organization [facility] Address [address] [place] [address] Care Team Providers Care Turret Lathe Operator Name Role Phone Monica Gonzalez MD Primary Care Provider [phone] Encounter Details Date Type Department Care Team Description 08/20/2023 E-Visit Dedicated Specialty Scheduling [address] [place] [address] Angella, [place] [address] Social History Tobacco Use Types Packs/Day Years [...] Department Care Team Description 10/26/2023 4:00 PM HEAD CORRECTION OFFICER Appointment [facility] [address] [place], [place] [phone] Renetta Montoya, [facility] [address] [place] [address] documented as of this encounter Visit Diagnoses Not on filedocumented in this encounter Care Teams Turret Lathe Operator Relationship Specialty Start Date End Date Monica Gonzalez MD [address] [place] [address] PCP - General 11/27/09 documented as of this encounter
--- OUTSIDE RECORDS SUMMARY | 2023-10-13 11:20 | XMS_ITS | Encounter Summary ---
Author Name Unknown Organization [facility] Address [address], [place] [address] Care Team Providers Care Lead Architect Name Role Phone Monica Gonzalez MD Primary Care Provider [phone] Encounter Details Date Type Department Care Team Description 06/04/2023 1:10 PM CDT Lab Visit [facility] [address] [place] [address] Screening for colon cancer Social History Tobacco Use Types Packs/Day Years [...] Department Care Team Description 10/26/2023 4:00 PM CERTIFIED DIETARY MANAGER Appointment [facility] [address] [place] [address] Renetta Montoya, [facility] [address] [place] [address] documented as of this encounter Procedures Procedure Name Priority Date/Time Associated Diagnosis Comments FIT COLON RECTAL CANCER SCREENING Routine 05/30/2023 7:05 PM CDT Screening for colon cancer documented in this encounter Results * FIT Colon Rectal Cancer Screening (05/30/2023 7:05 PM CDT) FIT Specimen 1 Negative Negative 06/05/2023 3:56 AM CDT [facility] Stool 05/30/2023 7:05 PM CDT 06/04/2023 1:01 PM CDT Monica Gonzalez MD LAB_1 [facility] [address] [phone] documented in this encounter Visit Diagnoses Diagnosis Screening for colon cancer Special screening for malignant neoplasms, colon documented in this encounter Care Teams Lead Architect Relationship Specialty Start Date End Date Monica Gonzalez MD [address] [place] [address] PCP - General 11/27/09 documented as of this encounter
--- OUTSIDE RECORDS SUMMARY | 2023-10-13 11:20 | XMS_ITS | Encounter Summary ---
Author Name Unknown [facility] Address [address], [place] [address] Care Team Providers Care Water Quality Technician Name Role Phone Monica Gonzalez MD Primary Care Provider [phone] Reason for Visit * Reason Onset Date Comments Refill 07/16/2023 lisdexamfetamine (VYVANSE) 70 MG capsule Encounter Details Date Type Department Care Team Description 07/16/2023 Refill [facility] [address] [place] [phone] [place] [address] [place] [address] Refill ( lisdexamfetamine (VYVANSE) 70 MG capsule) Social History Tobacco Use [...] as of this encounter Nursing Notes * Alysia Kraus MD - 07/16/2023 9:48 PM CDT This is a bit early, will postpone until next week, closer to a month from her last refill, on 06-22-23. Alysia Kraus MD * Interface, Out Socialbomb Prov Query - 07/16/2023 9:41 AM CDT lisdexamfetamine (VYVANSE) 70 MG capsule ADHD (controlled substance) -> Medication cannot be delegated. Last qualifying visit: 05/14/2023 (with MONICA GONZALEZ) Next scheduled visit: None Last ordered by MONICA GONZALEZ: 05/12/2023 (65 days ago) QTY: 30, Refills: 0, Sig: take 1 capsule (70 mg) by mouth daily. (unchanged) Zettaset Embedded Refills, Reference: [id number], 07/16/2023 9:41:43 AM CDT, Pool: EG REFILL RN ([id number]) * Interface, Out Socialbomb Prov Query - 07/16/2023 9:41 AM CDT No Careplan note found by [employer]. documented in this encounter Plan of Treatment Upcoming Encounters Date Type Department Care Team Description 10/26/2023 4:00 PM BOXING INSPECTOR Appointment [facility] [address] [place] [address] Renetta Montoya, [facility] [address] [place], [place] [phone] documented as of this encounter Visit Diagnoses Diagnosis Attention deficit disorder, unspecified hyperactivity presence documented in this encounter Care Teams Water Quality Technician Relationship Specialty Start Date End Date Monica Gonzalez MD [address] [place] [address] PCP - General 11/27/09 documented as of this encounter
--- OUTSIDE RECORDS SUMMARY | 2023-10-13 11:20 | XMS_ITS | Encounter Summary ---
Author Name Unknown Organization [facility] Address [address], [place] [address] Care Team Providers Care Hotbed Operator Name Role Phone Monica Gonzalez MD Primary Care Provider [phone] Reason for Referral * Consult/Transfer Care (Routine) - New Request Specialty Diagnoses / Procedures Referred By Contac t Referred To Contact Diagnoses Attention deficit disorder, unspecified hyperactivity presence PTSD (post-traumatic stress disorder) (HRC) Depression with anxiety (HRC) Stephanie Schumacher MD [address] [place] [address] Referral ID Status Reason Start Date Expiration Date V isits Requested Visits Authorized [id number] New Request 08/20/2023 11/18/2024 1 1 Scheduling Instructions Your clinician has recommended an appointment with Behavioral Health. You may call [phone] to schedule your appointment. This recommended service/s may not be covered by your health plan (health insurance). To find out your specific benefit coverage, please call the number on your insurance card.?? Please note that in order to maintain access for all patients, Behavioral Health does have a late cancellation policy.?? In order to avoid being restricted from scheduling future appointments in Behavioral Health you will need to cancel at least 48 hours in advance. We request you that you arrive 30 minutes before your first appointment to complete paperwork. Question Answer Appointment Urgency? Non-Urgent Reason for request? Depression, anxiety, ptsd Requested Services? Therapy/Counseling Pt aware and agrees to this order: Confirmed with patient NER TECHNICIAN * Consult/Transfer Care (Routine) - New Request Specialty Diagnoses / Procedures Referred By Contac t Referred To Contact Diagnoses Left hip pain Stephanie Schumacher MD [address] [place] [address] Referral ID Status Reason Start Date Expiration Date V isits Requested Visits Authorized [id number] New Request 08/20/2023 11/18/2024 1 1 Scheduling Instructions Your clinician has recommended an appointment with [facility]opa[facility] [place]. You can quickly make your appointment online at [email or web address]. You can also call [phone] for help scheduling your appointment. We suggest you call your health insurance company about your coverage and benefits for this appointment. Question Answer Appointment Urgency? Non-Urgent Reason for visit? left hip pain, chronic cora knee pain The patient should be seen by: Orthopaedic Non-Surgeon NER TECHNICIAN * Procedure/Equipment (Routine) - Incomplete Specialty Diagnoses / Procedures Referred By Contac t Referred To Contact Diagnoses Left hip pain Procedures XR Pelvis AP W AP/Lat Hip Lt Stephanie Schumacher MD [address] [place] [address] Referral ID Status Reason Start Date Expiration Date V isits Requested Visits Authorized [id number] Incomplete 08/20/2023 11/18/2024 1 1 NER TECHNICIAN * Consult/Transfer Care (Routine) - New Request Specialty Diagnoses / Procedures Referred By Contac t Referred To Contact Diagnoses Lesion of lip Stephanie Schumacher MD [address] [place] [address] Referral ID Status Reason Start Date Expiration Date V isits Requested Visits Authorized [id number] New Request 08/20/2023 11/18/2024 1 1 Scheduling Instructions Your clinician has recommended an appointment with [facility]. You can quickly make your appointment online at [email or web address]/schedule. You can also call [phone] for help scheduling your appointment. We suggest you call your health insurance company about your coverage and benefits for this appointment. Question Answer Appointment Urgency? Non-Urgent Reason for visit? lower lip lesion--benign-has seen outside dermatology, looking for another opinion NER TECHNICIAN Reason for Visit * Reason Comments ADHD Encounter Details Date Type Department Care Team Description 08/20/2023 3:20 PM CORONER TECHNICIAN Office Visit [facility] [address] [place] [phone] Stephanie Schumacher MD [address] [place] [address] Attention deficit disorder, unspecified hyperactivity presence (Primary Dx); Weight gain; Lesion of lip; Left hip pain; Chronic pain of both knees; PTSD (post-traumatic stress disorder) (HRC); Depression with anxiety (HRC); Memory changes; Encounter for immunization; Hair loss Social History Tobacco Use Types Packs/Day Years [...] Comments Blood Pressure 130/85 08/20/2023 3:25 PM CORONER TECHNICIAN Pulse 103 08/20/2023 3:25 PM CORONER TECHNICIAN Temperature - - Respiratory Rate - - Oxygen Saturation - - Inhaled Oxygen Concentration - - Weight 65.8 kg (145 lb) 08/20/2023 3:25 PM CORONER TECHNICIAN Height - - Body Mass Index 22.05 05/14/2023 2:34 PM CDT documented in this encounter Progress Notes * Stephanie Schumacher MD - 08/20/2023 3:20 PM CST Historical: Chief Complaint Patient presents with ADHD ADHD Follow-up Are you currently taking medication for ADHD? YES Do you have any medication side effect concerns? YES, headaches and nausea, body aches Do you take your medication every day or on school/work days? work days Are you seeing a counselor or therapist? No Do you have any anxiety, depression, or other mental health concerns today? YES, Anxiety With your current treatment, do you have difficulty with any of the following: focusing, organization, completing tasks, sitting still or being impatient? YES focusing, organization, completing tasks, sitting still, and being impatient Do you have a loss in appetite or has your appetite changed? YES loss in appetite Do you have insomnia, GI symptoms or racing heart beat? YES insomnia Bump on limp It's hurting Went to Derm before Had it for years They did laser treatments, it helped It's back now Wondering if there's a lip specialist Memory issues Has been going on for years Should she see someone? Has been seeing at [facility] for years He's not in network anymore Wondering if we can take over Minoxidil, losartan, Topiramate, and Phentermine States she was closer to 190 lbs before and now is keeping off. 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 Observed: BP 130/85 (BP Location: Right Arm, BP Cuff Size: Regular) Pulse (!) 103 Wt 145 lb (65.8 kg) BMI 22.05 kg/m?? Physical Exam: General Appearance: alert, well appearing, and in no apparent distress Musculoskeletal: Hip: left no tenderness over greater trochanter, no tenderness over SI joint, fullrange of motion, and +pain with external rotation Assessment/Plan: 52 yo F w/ pmhx of obesity/weight concerns, ADD, depression, anxiety, ptsd, chronic knee pain, backpain, migraines, osteopenia, hx of BCC, hx of AK seen for multiple concerns Left hip pain-xray today. We discussed PT, she does not want. Ortho referral Hx of Right meniscal tear, ongoing cora Knee pain, s/p steroid injection 3 months ago-ortho referral. States PT did not work . She is on her knees a lot for work too Lip lesion-benign, but does hurt her. Derm referral. Hx of obesity-we discussed ok with doing meds for maintenance, no more than 37.5 mg for Phentermineand continue to watch HR as she is also on Vyvanse. Ok with topirmate dosing Hx of Hair loss-ok with continue minoxidil ADHD-vyvanse brand ordered. Memory concerns-for years, >10 years, not acute. States she feels like she does not remember things as well as others Depression/anxiety/ptsd--did not fill out forms today however, wondered if this impacts focus and her recall We will have her return for a full memory test, Vitamin B12 1. Attention deficit disorder, unspecified hyperactivity presence - Behavioral Health - VYVANSE 70 MG capsule; Take 1 Capsule (70 mg) by mouth daily. Dispense: 30 Capsule; Refill: 0 2. Weight gain 3. Lesion of lip - Dermatology Consult-Adult/Peds 4. Left hip pain - XR Pelvis AP W AP/Lat Hip Lt; Future - Orthopaedic Consult Adult/Peds 5. Chronic pain of both knees 6. PTSD (post-traumatic stress disorder) (HRC) - Behavioral Health 7. Depression with anxiety (HRC) - Behavioral Health 8. Memory changes - Vitamin B12 Only; Future 9. Encounter for immunization - sendwithus 12+ 10. Hair loss Total time: 42 minutes spent on direct care, chart review, coordination of care and documentation. Heart Health: As recommended by the [place] [employer], we use information about your health to estimate your risk for a heart attack or stroke. Your risk in the next 10 years is 1.1%. The information we used to estimate your risk is: Your age 52, sex, blood pressure of 130/85 mm Hg, use of blood pressure lowering medication, total cholesterol of 234 mg/dl, HDL (good cholesterol) of 92 mg/dl, no diagnosis of diabetes, no tobacco or nicotine use. Your risk factors for heart attack and stroke appear to be managed well. Continue to manage your risk by staying tobacco-free, eating a healthy diet and staying physically active. Please see orders and patient instructions Stephanie Schumacher MD NER TECHNICIAN documented in this encounter Plan of Treatment Upcoming Encounters Date Type Department Care Team Description 10/26/2023 4:00 PM CORONER TECHNICIAN Appointment [facility] [address] [place] [address] Renetta Montoya, [facility] [address] [place] [address] Scheduled Referrals Name Type Priority Associated Diagnoses Orde r Schedule Dermatology Consult-Adult/Peds Referral Routine Lesion of lip Ordered: 08/20/2023 Orthopaedic Consult Adult/Peds Referral Routine Left hip pain Ordered: 08/20/2023 Behavioral Health Referral Routine Attention deficit disorder, unspecified hyperactivity presence PTSD (post-traumatic stress disorder) (HRC) Depression with anxiety (HRC) Ordered: 08/20/2023 documented as of this encounter Results * Vitamin B12 Only (08/20/2023 4:42 PM CORONER TECHNICIAN) Vitamin B12 784 213 - 816 pg/mL 08/20/2023 7:42 PM CORONER TECHNICIAN [facility] Blood Venipuncture / Unknown 08/20/2023 4:42 PM CORONER TECHNICIAN 08/20/2023 4:42 PM CORONER TECHNICIAN Stephanie Schumacher MD LAB_1 [facility] [address] [phone] * XR Pelvis AP W AP/Lat Hip Lt (08/20/2023 4:34 PM CORONER TECHNICIAN) Anatomical Region Laterality Modality Pelvis, Hip Computed Radiogr aphy 08/20/2023 4:34 PM CORONER TECHNICIAN Narrative 08/20/2023 7:31 PM CORONER TECHNICIAN EXAM: XR PELVIS AP W AP/LAT HIP LT LOCATION: [facility] DATE: 08/20/2023 INDICATION: Left hip pain, Pain in left hip, PAIN COMPARISON: None. IMPRESSION: Degenerative change in the bilateral hips. Moderate degenerative change in the bilateral sacroiliac joints. No fracture or dislocation. Procedure Note Jay Damian MD - 08/20/2023 EXAM: XR PELVIS AP W AP/LAT HIP LT LOCATION: [facility] DATE: 08/20/2023 INDICATION: Left hip pain, Pain in left hip, PAIN COMPARISON: None. IMPRESSION: Degenerative change in the bilateral hips. Moderatedegenerative change in the bilateral sacroiliac joints. No fracture ordislocation. Stephanie Schumacher MD RAD GD documented in this encounter Visit Diagnoses Diagnosis Attention deficit disorder, unspecified hyperactivity presence- Primary Weight gain Abnormal weight gain Lesion of lip Diseases of lips Left hip pain Pain in joint, pelvic region and thigh Chronic pain of both knees PTSD (post-traumatic stress disorder) (HRC) Posttraumatic stress disorder Depression with anxiety (HRC) Dysthymic disorder Memory changes Memory loss Encounter for immunization Need for other specified prophylactic vaccination against single bacterial disease Hair loss Alopecia, unspecified Left hip pain Pain in joint, pelvic region and thigh documented in this encounter Care Teams Hotbed Operator Relationship Specialty Start Date End Date Monica Gonzalez MD [address] [place] [address] PCP - General 11/27/09 documented as of this encounter
--- OUTSIDE RECORDS SUMMARY | 2023-10-13 11:20 | XMS_ITS | Encounter Summary ---
Author Name Unknown Organization [facility] Address [address] [place] [address] Care Team Providers Care Verification Engineer Name Role Phone Monica Gonzalez MD Primary Care Provider [phone] Encounter Details Date Type Department Care Team Description 05/20/2023 Notes/Orders [facility] [place] [address] Monica Gonzalez MD [address] [place], [place] [id number] Screening for colon cancer Social History Tobacco [...] Department Care Team Description 10/26/2023 4:00 PM CREW DIRECTOR Appointment [facility] [address] [place] [address] Renetta Montoya, [facility] [address] [place] [address] documented as of this encounter Results * FIT Colon Rectal Cancer Screening (05/30/2023 7:05 PM CDT) FIT Specimen 1 Negative Negative 06/05/2023 3:56 AM CDT [facility] Stool 05/30/2023 7:05 PM CDT 06/04/2023 1:01 PM CDT Monica Gonzalez MD LAB_1 [facility] [address] [address] [phone] documented in this encounter Visit Diagnoses Diagnosis Screening for colon cancer Special screening for malignant neoplasms, colon documented in this encounter Care Teams Verification Engineer Relationship Specialty Start Date End Date Monica Gonzalez MD [address] [place] [address] PCP - General 11/27/09 documented as of this encounter
--- OUTSIDE RECORDS SUMMARY | 2023-10-13 11:20 | XMS_ITS | Encounter Summary ---
Author Name Unknown Organization [facility] Address [address] [place] [address] Care Team Providers Care Glass Cutting Machine Operator Name Role Phone Monica Gonzalez MD Primary Care Provider [phone] Reason for Visit * Reason Comments Eye Exam Encounter Details Date Type Department Care Team Description 07/27/2023 2:40 PM SOLUTION MAKER Office Visit [facility] [address] [place] [address] [place] [address] [place] [address] Examination of eyes and vision (Primary Dx); Presbyopia; Dermatochalasis of both upper eyelids Social History Tobacco Use Types Packs/Day Years [...] PM CDT documented as of this encounter Progress Notes * Patricia Tuttle, OD - 07/27/2023 2:40 PM CST I reviewed the patient's past medical history, medications, family history, and social history. General: Generally healthy appearing. Alert and oriented x 3. Subjective: See tech note for today, agree. Assessment: ICD-10-CM 1. Examination of eyes and vision Z01.00 2. Presbyopia H52.4 Refractive State, Determination Of - Bilateral 3. Dermatochalasis of both upper eyelids H02.831 H02.834 Plan: Plan: 1-2. Gave updated glasses prescription- no distance correction needed, may continue using SV readers if preferred. 3. Patient notices that her eyelids feel heavier, strains to keep them adequately lifted out of line of sight while driving. Patient is interested in a lid surgery consult. Return to clinic in 1 year for CE, or sooner as needed. TION MAKER documented in this encounter Plan of Treatment Upcoming Encounters Date Type Department Care Team Description 10/26/2023 4:00 PM SOLUTION MAKER Appointment [facility] [address] [place] [address] Renetta Montoya, [facility] [address] [place], [place] [phone] documented as of this encounter Visit Diagnoses Diagnosis Examination of eyes and vision- Primary Presbyopia Dermatochalasis of both upper eyelids documented in this encounter Care Teams Glass Cutting Machine Operator Relationship Specialty Start Date End Date Monica Gonzalez MD [address] [place] [address] PCP - General 11/27/09 documented as of this encounter
--- OUTSIDE RECORDS SUMMARY | 2023-10-13 11:20 | XMS_ITS | Encounter Summary ---
Author Name Unknown Organization [facility] Address [address], [place] [address] Care Team Providers Care Graphic Manager Name Role Phone Monica Gonzalez MD Primary Care Provider [phone] Reason for Visit * Procedure/Equipment (Routine) - Incomplete Specialty Diagnoses / Procedures Referred By Contac t Referred To Contact Diagnoses Left hip pain Procedures XR Pelvis AP W AP/Lat Hip Lt Stephanie Schumacher MD [address] [facility] [place] [address] Referral ID Status Reason Start Date Expiration Date V isits Requested Visits Authorized [id number] Incomplete 08/20/2023 11/18/2024 1 1 Encounter Details Date Type Department Care Team Description 08/20/2023 4:25 PM FLUID POWER MECHANIC Ancillary Procedure [facility] [address] [facility] [place] [address] Stephanie Schumacher MD [address] [place], [place] [address] [id number] Left hip pain Social History Tobacco Use Types Packs/Day Years [...] Department Care Team Description 10/26/2023 4:00 PM FLUID POWER MECHANIC Appointment [facility] [address] [place] [address] Renetta Montoya, [facility] [address] [place] [address] documented as of this encounter Procedures Procedure Name Priority Date/Time Associated Diagnosis Comments XR PELVIS AP W AP/LAT HIP LT Routine 08/20/2023 4:34 PM FLUID POWER MECHANIC Left hip pain documented in this encounter Results * XR Pelvis AP W AP/Lat Hip Lt (08/20/2023 4:34 PM FLUID POWER MECHANIC) Anatomical Region Laterality Modality Pelvis, Hip Computed Radiogr aphy 08/20/2023 4:34 PM FLUID POWER MECHANIC Narrative 08/20/2023 7:31 PM FLUID POWER MECHANIC EXAM: XR PELVIS AP W AP/LAT HIP LT LOCATION: [facility] DATE: 08/20/2023 INDICATION: Left hip pain, Pain in left hip, PAIN COMPARISON: None. IMPRESSION: Degenerative change in the bilateral hips. Moderate degenerative change in the bilateral sacroiliac joints. No fracture or dislocation. Procedure Note Jay Damian MD - 08/20/2023 EXAM: XR PELVIS AP W AP/LAT HIP LT [facility]: 08/20/2023 INDICATION: Left hip pain, Pain in left hip, PAIN COMPARISON: None. IMPRESSION: Degenerative change in the bilateral hips. Moderatedegenerative change in the bilateral sacroiliac joints. No fracture ordislocation. Stephanie Schumacher MD RAD GD documented in this encounter Visit Diagnoses Diagnosis Left hip pain Pain in joint, pelvic region and thigh documented in this encounter Care Teams Graphic Manager Relationship Specialty Start Date End Date Monica Gonzalez MD [address] [place] [address] PCP - General 11/27/09 documented as of this encounter
--- OUTSIDE RECORDS SUMMARY | 2023-10-13 11:20 | XMS_ITS | Encounter Summary ---
Author Name Unknown Organization [facility] Address [address] [place] [address] Care Team Providers Care Customer Consultant Name Role Phone Monica Gonzalez MD Primary Care Provider [phone] Encounter Details Date Type Department Care Team Description 05/19/2023 Orders Only HIM DEPARTMENT [place]Christos [place] [address] Social History Tobacco Use Types Packs/Day Years [...] Department Care Team Description 10/26/2023 4:00 PM SOCIOLOGY ADJUNCT INSTRUCTOR Appointment [facility] [address] [place] [address] Renetta Montoya, [facility] [address] [place] [address] documented as of this encounter Procedures Procedure Name Priority Date/Time Associated Diagnosis Comments LABORATORY REPORT 05/19/2023 documented in this encounter Results * LABORATORY REPORT (05/19/2023) Interface Provider DUMMY/OTHER/AR documented in this encounter Visit Diagnoses Not on filedocumented in this encounter Care Teams Customer Consultant Relationship Specialty Start Date End Date Monica Gonzalez MD [address] [place] [address] PCP - General 11/27/09 documented as of this encounter
--- OUTSIDE RECORDS SUMMARY | 2023-10-13 11:20 | XMS_ITS | Encounter Summary ---
Author Name Unknown Organization [facility] Address [address] [place] [address] Care Team Providers Care Manager Of Business Operations Name Role Phone Monica Gonzalez MD Primary Care Provider [phone] Reason for Visit * Reason Comments Refill RETIN-A 0.05 % cream [Pharmacy Med Name: Retin-A External Cream 0.05 %] Encounter Details Date Type Department Care Team Description 06/05/2023 Refill [facility] [address] [place] [phone] [place] [address] [place] [address] Refill (RETIN-A 0.05 % cream [Pharmacy Med Name: Retin-A External Cream 0.05 %]) Social History Tobacco Use Types Packs/Day Years [...] * Interface, Out Surescripts Prov Query - 06/05/2023 1:26 PM CDT RETIN-A 0.05 % cream [Pharmacy Med Name: Retin-A External Cream 0.05 %] None Exists -> Medication cannot be delegated. Last qualifying visit: 05/14/2023 (with MONICA GONZALEZ) Next scheduled visit: None Last ordered by MONICA GONZALEZ: 08/08/2021 (666 days ago) QTY: 45, Refills: 2, Sig: apply thin filmto affected areas nightly (unchanged) [employer] Embedded Refills, Reference: [id number], 06/05/2023 1:26:48 PM CDT, Pool: KYLE REFHANH RN ([id number]) documented in this encounter Plan of Treatment Upcoming Encounters Date Type Department Care Team Description 10/26/2023 4:00 PM LEGAL BILLING COORDINATOR Appointment [facility] [address] [place], [place] [phone] [place] [address] [place] [address] documented as of this encounter Visit Diagnoses Not on filedocumented in this encounter Care Teams Manager Of Business Operations Relationship Specialty Start Date End Date Monica Gonzalez MD [address] [place] [address] PCP - General 11/27/09 documented as of this encounter
--- OUTSIDE RECORDS SUMMARY | 2023-10-13 11:20 | XMS_ITS | Encounter Summary ---
Author Name Unknown Organization [facility] Address [address], [place] [address] Care Team Providers Care Fluoroscope Operator Name Role Phone Monica Gonzalez MD Primary Care Provider [phone] Reason for Visit * Procedure/Equipment (Routine) - Incomplete Specialty Diagnoses / Procedures Referred By Contac t Referred To Contact Diagnoses Liver cyst (HRC) Procedures US Abd RUQ Organs US Abd Limited Monica Gonzalez MD [address] [place] [address] Referral ID Status Reason Start Date Expiration Date V isits Requested Visits Authorized [id number] Incomplete 05/14/2023 08/12/2024 1 1 Encounter Details Date Type Department Care Team Description 06/22/2023 7:15 AM CDT Ancillary Procedure [facility] [address] [address]ound [address] [place] [address] Monica Gonzalez MD [address] [place] [id number] Liver cyst (HRC) Social History Tobacco Use Types Packs/Day Years [...] Department Care Team Description 10/26/2023 4:00 PM CUTTER INSPECTOR Appointment [facility] [address] [place] [address] Renetta Montoya, RDH [address] [place] [address] documented as of this encounter Procedures Procedure Name Priority Date/Time Associated Diagnosis Comments US ABD RUQ ORGANS Routine 06/22/2023 7:2 6 AM CDT Liver cyst (HRC) documented in this encounter Results * US Abd RUQ Organs (06/22/2023 7:26 AM CDT) Anatomical Region Laterality Modality Abdomen Ultrasound 06/22/2023 7:02 AM CDT Impressions 06/22/2023 7:41 AM CDT COMPARISON: ??MRI 12/29/2013 FINDINGS: ?? Pancreas: Appears unremarkable. Liver: Contour appears unremarkable. There is a 2.6 x 0.8 x 1.6 cm subcapsular cyst in the left hepatic lobe without color Doppler vascularity. On prior MRI this measured 3.2 cm. Gallbladder: No stones, sludge, wall thickening, or pericholecystic fluid. Sonographic Chow's Sign: No. CBD: 0.5 cm. Right Kidney: Measures 11.1 x 4.2 x 5.6 cm. Appears unremarkable. Ascites: None. IMPRESSION: Benign cysts is again seen in the subcapsular left tach lobe. Narrative Procedure Note Humble Mejia MD - 06/22/2023 IMPRESSION COMPARISON: MRI 12/29/2013 FINDINGS: Pancreas: Appears unremarkable. Liver: Contour appears unremarkable. There is a 2.6 x 0.8 x 1.6 cmsubcapsular cyst in the left hepatic lobe without color Dopplervascularity. On prior MRI this measured 3.2 cm. Gallbladder: No stones, sludge, wall thickening, or pericholecysticfluid. Sonographic Chow's Sign: No. CBD: 0.5 cm. Right Kidney: Measures 11.1 x 4.2 x 5.6 cm. Appears unremarkable. Ascites: None. IMPRESSION: Benign cysts is again seen in the subcapsular left tachlobe. Monica Gonzalez MD RAD US documented in this encounter Visit Diagnoses Diagnosis Liver cyst (HRC) Other specified disorders of liver documented in this encounter Care Teams Fluoroscope Operator Relationship Specialty Start Date End Date Monica Gonzalez MD [address] [place] [address] PCP - General 11/27/09 documented as of this encounter
--- OUTSIDE RECORDS SUMMARY | 2023-10-13 11:20 | XMS_ITS | Encounter Summary ---
Author Name Unknown Organization [facility] Address [address] [place] [address] Care Team Providers Care Cook House Supervisor Name Role Phone Monica Gonzalez MD Primary Care Provider [phone] Encounter Details Date Type Department Care Team Description 08/20/2023 4:40 PM PULVERIZER OPERATOR Lab Visit [facility] [address] [place] [address] Memory changes Social History Tobacco Use Types Packs/Day Years [...] Department Care Team Description 10/26/2023 4:00 PM PULVERIZER OPERATOR Appointment [facility] [address] [place] [address] Renetta Montoya, [facility] [address] [place] [address] documented as of this encounter Procedures Procedure Name Priority Date/Time Associated Diagnosis Comments VITAMIN B12 ONLY Routine 08/20/2023 4:42 PM PULVERIZER OPERATOR Memory changes documented in this encounter Results * Vitamin B12 Only (08/20/2023 4:42 PM PULVERIZER OPERATOR) Vitamin B12 784 213 - 816 pg/mL 08/20/2023 7:42 PM PULVERIZER OPERATOR Seat 14A LAB Blood Venipuncture / Unknown 08/20/2023 4:42 PM PULVERIZER OPERATOR 08/20/2023 4:42 PM PULVERIZER OPERATOR Stephanie Schumacher MD LAB[facility] [address] [phone] documented in this encounter Visit Diagnoses Diagnosis Memory changes Memory loss documented in this encounter Care Teams Cook House Supervisor Relationship Specialty Start Date End Date Monica Gonzalez MD [address] [place] [address] PCP - General 11/27/09 documented as of this encounter
--- OUTSIDE RECORDS SUMMARY | 2023-10-13 11:20 | XMS_ITS | Encounter Summary ---
Author Name Unknown Organization [facility] Address [address] [place] [address] Care Team Providers Care Retort Forker Name Role Phone Monica Gonzalez MD Primary Care Provider [phone] Reason for Visit * Reason Onset Date Comments Refill 05/11/2023 lisdexamfetamine (VYVANSE) 70 MG capsule Encounter Details Date Type Department Care Team Description 05/11/[address] [address] [place] [address] [place] [address] Refill (lisdexamfetamine (VYVANSE) 70 MG capsule) Social History Tobacco [...] * Interface, Out Surescripts Prov Query - 05/11/2023 9:57 AM CDT lisdexamfetamine (VYVANSE) 70 MG capsule ADHD (controlled substance) -> Medication cannot be delegated. Last qualifying visit: 12/09/2022 (with MONICA GONZALEZ) Next scheduled visit: None Last ordered by MONICA GONZALEZ: 04/09/2023 (32 days ago) QTY: 30, Refills: 0, Sig: take 1 capsule (70 mg) by mouth daily. (unchanged) CellSpin Embedded Refills, Reference: [id number], 05/11/2023 9:57:28 AM CDT, Pool: KYLE REFILL INDIO ([id number]) * Interface, Out Orthohub Prov Query - 05/11/2023 9:57 AM CDT No Careplan note found by [employer]. documented in this encounter Plan of Treatment Upcoming Encounters Date Type Department Care Team Description 10/26/2023 4:00 PM CHILD CARE ASSISTANT Appointment [facility] [address] [place] [address] Renetta Montoya, [facility] [address] [place], [place] [phone] documented as of this encounter Visit Diagnoses Diagnosis Attention deficit disorder, unspecified hyperactivity presence documented in this encounter Care Teams Retort Forker Relationship Specialty Start Date End Date Monica Gonzalez MD [address] [place] [address] PCP - General 11/27/09 documented as of this encounter
--- OUTSIDE RECORDS SUMMARY | 2023-10-13 11:20 | XMS_ITS | Encounter Summary ---
Author Name Unknown Organization [facility] Address [address] [place] [address] Care Team Providers Care Machine Operator Cane Cutter Name Role Phone Monica Gonzalez MD Primary Care Provider [phone] Reason for Visit * Reason Comments Dental Services Encounter Details Date Type Department Care Team Description 01/14/2023 Telephone [facility] [address] [place], [place] [phone] Jagruti Waggoner, DDS [address] [place], [place] [phone] Dental Services Social History Tobacco Use Types Packs/Day Years [...] as of this encounter Nursing Notes * Rachel Harvey - 01/14/2023 7:35 PM CDT Patient came to clinic on 12/26/22 wanting to speak to supervisor remelt. I went out to the front and patient asked why no one has called her back. Informed patient this is the first time this has been brought to my attention and that I will follow up with the team and give her a call back next week when I can look into the situation further. Patient explained that she recently had a crown done and [facility] is denying those services. Patient said she was not informed that it would not be covered. I advised that I would further investigate and call her back. Called patient back on 12/29/22. The prior authorization was not back in time for patients appointment. Upon patient checking into her appointment the front receptionist telephone operator let the patient know about this. Per our estimate in [facility], this is not a covered benefit. Test Consultant had patient sign the [facility] waiver form which outlines the service is not a covered benefit and shows the out of pocket costs tothe patient. Patient signed the waiver form indicating understanding and proceeded with having the service completed. I explained to the patient that we did indeed communicate that there was no coverage, we did give her the form that indicated this and she did sign it. Patient said she was given the form but was never informed to read it over, she was just advised to sign it so patient just signed it. I asked the patient why she didn't read the form that was given to her before signing it, she stated she didn't know she had to. Patient said that we know our job better than her and felt we were taking advantage of her by giving her the form and not explaining what the form is. I encouraged the patient to ask questions if she is ever uncertain about anything. I informed her that giving her the proper documents and information is our responsibility but if she doesn't understand fully that it is her responsibility to ask us those questions. I informed her that I will take her feedback anduse it to make improvements at check in but she needs to take ownership that she did not read the form that she was signing. I informed her that at check in she could have decided not to proceed withservices since we showed that it was not covered by her insurance. She said she was not aware she could cancel/reschedule. I said that we will never force a patient to receive services and scheduling appointments for treatment is driven by the patient. I informed patient that we will not be adjusting this off as we did provide the necessary information to her and she did sign the waiver form indicating understanding. I apologized that the end result is not favorable. Patient did not agree with me but wanted to end the conversation as she felt the conversation was going no where. documented in this encounter Plan of Treatment Upcoming Encounters Date Type Department Care Team Description 10/26/2023 4:00 PM FACILITIES MAINTENANCE MANAGER Appointment [facility] [address] [place], [place] [phone] Renetta Montoya, [facility] [address] [place], [place] [phone] documented as of this encounter Visit Diagnoses Not on filedocumented in this encounter Care Teams Machine Operator Cane Cutter Relationship Specialty Start Date End Date Monica Gonzalez MD [address] [place] [address] PCP - General 11/27/09 documented as of this encounter
--- OUTSIDE RECORDS SUMMARY | 2023-10-13 11:20 | XMS_ITS | Encounter Summary ---
Author Name Unknown Organization [facility] Address [address] [place] [address] Care Team Providers Care Senior Dentist Name Role Phone Monica Gonzalez MD Primary Care Provider [phone] Reason for Visit * Reason Onset Date Comments Refill 04/09/2023 lisdexamfetamine (VYVANSE) 70 MG capsule Encounter Details Date Type Department Care Team Description 04/09/2023 Refill [facility] [address] [place] [address] Monica Gonzalez MD [address] [place] [address] Refill (lisdexamfetamine (VYVANSE) 70 MG capsule) [...] * Interface, Out Surescripts Prov Query - 04/09/2023 8:39 AM CDT lisdexamfetamine (VYVANSE) 70 MG capsule ADHD (controlled substance) -> Medication cannot be delegated. -> A qualifying visit was not found within the last 2 years. Last qualifying visit: None (A recent visit (in Family Practice with ELIEL MONICA Avalos) was found) Next scheduled visit: None Last ordered by ROSELYN WAGNER L: 02/18/2023 (50 days ago) QTY: 30, Refills: 0, Sig: take 1 capsule (70 mg) by mouth daily. (unchanged) Ohai Embedded Refills, Reference: [id number], 04/09/2023 8:39:40 AM CDT, Pool: KYLE REFILL RN ([id number]) * Interface, Out CyberArts Prov Query - 04/09/2023 8:39 AM CDT No Careplan note found by [employer]. documented in this encounter Plan of Treatment Upcoming Encounters Date Type Department Care Team Description 10/26/2023 4:00 PM SUPERVISOR ELECTRIC MOTOR TESTING Appointment [facility] [address] [place] [address] Renetta Montoya, [facility] [address] [place], [place] [phone] documented as of this encounter Visit Diagnoses Diagnosis Attention deficit disorder, unspecified hyperactivity presence documented in this encounter Care Teams Senior Dentist Relationship Specialty Start Date End Date Monica Gonzalez MD [address] [place] [address] PCP - General 11/27/09 documented as of this encounter
--- OUTSIDE RECORDS SUMMARY | 2023-10-13 11:20 | XMS_ITS | Encounter Summary ---
Author Name Unknown Organization [facility] Address [address] [place] [address] Care Team Providers Care Customer Service Cashier Name Role Phone Monica Gonzalez MD Primary Care Provider [phone] Reason for Visit * Reason Onset Date Comments Refill 02/12/2023 Encounter Details Date Type Department Care Team Description 02/12/2023 Refill [facility] [address] [place] [phone] Jagruti Waggoner, DDS [address] [place], [place] [phone] Refill Social History Tobacco Use Types Packs/Day Years [...] Department Care Team Description 10/26/2023 4:00 PM OPENER Appointment [facility] [address] [place] [phone] Renetta Montoya, [facility] [address] [place], [place] [phone] documented as of this encounter Visit Diagnoses Not on filedocumented in this encounter Care Teams Customer Service Cashier Relationship Specialty Start Date End Date Monica Gonzalez MD [address] [place] [address] PCP - General 11/27/09 documented as of this encounter
--- OUTSIDE RECORDS SUMMARY | 2023-10-13 11:20 | XMS_ITS | Encounter Summary ---
Author Name Unknown Organization [facility] Address [address], [place] [address] Care Team Providers Care Java Analyst Name Role Phone Monica Gonzalez MD Primary Care Provider [phone] Reason for Referral * Procedure/Equipment (Routine) - Incomplete Specialty Diagnoses / Procedures Referred By Contac t Referred To Contact Diagnoses Liver cyst (HRC) Procedures US Abd RUQ Organs US Abd Limited Monica Gonzalez MD [address] [place] [address] Referral ID Status Reason Start Date Expiration Date V isits Requested Visits Authorized [id number] Incomplete 05/14/2023 08/12/2024 1 1 Reason for Visit * Reason Comments KNEE PAIN Injection Encounter Details Date Type Department Care Team Description 05/14/2023 2:30 PM CDT Office Visit [facility] [address] [place] [address] [address] [place] [address] Monica Gonzalez MD [address] [facility] [place] [address] Bilateral chronic knee pain (Primary Dx); Liver cyst (HRC) Social History Tobacco Use [...] Sign Reading Time Taken Comments Blood Pressure 140/93 05/14/2023 2:34 PM CDT Pulse 102 05/14/2023 2:34 PM CDT Temperature 36.7 ??C (98.1 ??F) 05/14/2023 2:34 PM CD T Respiratory Rate - - Oxygen Saturation - - Inhaled Oxygen Concentration - - Weight 66.7 kg (147 lb) 05/14/2023 2:34 PM CDT Height 172.7 cm (5' 8) 05/14/2023 2:34 PM CDT Body Mass Index 22.35 05/14/2023 2:34 PM CDT documented in this encounter Progress Notes * Monica Gonzalez MD - 05/14/2023 2:30 PM CDT Historical: Chief Complaint Patient presents with KNEE PAIN Injection Right and Left Knee Pain, Follow-up visit: How long have you had these current symptoms: 8 year(s) Since onset of pain, how has your condition been: worsened How frequent is your pain: nearly everyday How severe is your pain (1-10): 10 Does your pain keep you awake at night: YES Do you have weakness: YES Does this limit work or activities: YES What have you tried for pain: home remedies Has had steroid injections before and they do help. Would like to do them again. Chart reviewed. Also on review it appears she's overdue for recheck u/s for the liver cyst I have personally reviewed the patient's allergies, medications, and past medical history in detailand updated the patient record as necessary. Observed: BP (!) 140/93 (BP Location: Right Arm, BP Cuff Size: Large) Pulse (!) 102 Temp 98.1 ??F (36.7 ??C) (Tympanic) Ht 5' 8 (1.727 m) Wt 147 lb (66.7 kg) LMP 05/02/2023 BMI 22.35 kg/m?? Physical Exam: General Appearance: alert, well appearing, and in no apparent distress Knees: no redness or swelling. Discussed possible risks of joint injections and she's aware and wishes to proceed. Each knee cleansed in usual fashion. Then 80mg kenalog and 8 cc 1% lidocaine injected into each knee in usual fashion. Assessment/Plan: Bilateral chronic knee pain (primary encounter diagnosis) Comment: hopefully these help again. Plan: INJECT/ASP MAJOR JOINT/BURSA HIP KNEE SHOULDER (), TRIAMCINOLONE ACET (KENALOG-40), 40MG DOSE, (1ML VIAL) Liver cyst (HRC) Comment: repeat u/s ordered Plan: US Abd Limited Please see orders and patient instructions Monica Gonzalez MD documented in this encounter Plan of Treatment Upcoming Encounters Date Type Department Care Team Description 10/26/2023 4:00 PM BLACKTOP SPREADER Appointment [facility] [address] [place], [place] [phone] Renetta Montoya, [facility] [address] [place] [address] documented as of this encounter Results * US Abd RUQ [...] the subcapsular left tachlobe. Monica Gonzalez MD [facility] US documented in this encounter Visit Diagnoses Diagnosis Bilateral chronic knee pain- Primary Pain in joint, lower leg Liver cyst (HRC) Other specified disorders of liver Liver cyst (HRC) Other specified disorders of liver documented in this encounter Care Teams Java Analyst Relationship Specialty Start Date End Date Monica Gonzalez MD [address] [place] [address] PCP - General 11/27/09 documented as of this encounter
--- OUTSIDE RECORDS SUMMARY | 2023-10-13 11:20 | XMS_ITS | Encounter Summary ---
Author Name Unknown Organization [facility] Address [address] [place] [address] Care Team Providers Care Lab Courier Name Role Phone Monica Gonzalez MD Primary Care Provider [phone] Reason for Visit * Reason Onset Date Comments Refill 02/18/2023 lisdexamfetamine (VYVANSE) 70 MG capsule Encounter Details Date Type Department Care Team Description 02/18/2023 Refill [facility] [address] [place] [phone] Monica Gonzalez MD [address] [place] [address] Refill (lisdexamfetamine (VYVANSE) 70 MG capsule) [...] * Interface, Out Surescripts Prov Query - 02/18/2023 1:51 PM CDT lisdexamfetamine (VYVANSE) 70 MG capsule ADHD (controlled substance) -> Medication cannot be delegated. Last qualifying visit: 12/09/2022 (with MONICA GONZALEZ) Next scheduled visit: None Last ordered by MONICA GONZALEZ: 01/05/2023 (44 days ago) QTY: 30, Refills: 0, Sig: take 1 capsule (70 mg) by mouth daily. (unchanged) NXVISION Embedded Refills, Reference: [id number], 02/18/2023 1:51:25 PM CDT, Pool: KYLE REFILL RN ([id number]) * Interface, Out Delivery Hero Query - 02/18/2023 1:51 PM CDT No Careplan note found by [email or web address]. documented in this encounter Plan of Treatment Upcoming Encounters Date Type Department Care Team Description 10/26/2023 4:00 PM HAT BLOCKING MACHINE OPERATOR Appointment [facility] [address] [place] [address] Renetta Montoya, [facility] [address] [place], [place] [phone] documented as of this encounter Visit Diagnoses Diagnosis Attention deficit disorder, unspecified hyperactivity presence documented in this encounter Care Teams Lab Courier Relationship Specialty Start Date End Date Monica Gonzalez MD [address] [place] [address] PCP - General 11/27/09 documented as of this encounter
--- OUTSIDE RECORDS SUMMARY | 2023-10-13 11:20 | XMS_ITS | Encounter Summary ---
Author Name Unknown Organization [facility] Address [address] [place] [address] Care Team Providers Care Plaster Form Maker Name Role Phone Monica Gonzalez MD Primary Care Provider [phone] Reason for Visit * Reason Comments KNEE PAIN Encounter Details Date Type Department Care Team Description 05/11/2023 Nurse Triage [address] [address] [place] [address] [place] [address] KNEE PAIN Social History Tobacco Use Types Packs/Day Years [...] as of this encounter Nursing Notes * Evelyn Clancy, RN - 05/11/2023 10:44 AM CDT Verified patient identity using three identifiers: Yes [facility] spoke with patient. Declines triage assessment at this time, as patient states the knee painis chronic and ongoing. Patient reports that does knee injections for her, when pain progressively worsens. Patient currently rates her right knee pain constant a #10/10 and intermittent left knee pain a #5/10. Patient reports that she was going to receive a knee injection at last visit, but clinic was out of medication. [facility] verified with 's nurse, to make sure we have the knee injection medication in stock and assisted patient in scheduling office visit. Evelyn MondragonRN 05/11/2023, 10:50 AM * Sudha Maloney RMA - 05/11/2023 10:29 AM CDT [facility] sending to RN to triage to determine if same day slot is needed. CIERRA Hairston 05/11/2023, 10:29 AM * Breanna Lujan - 05/11/2023 9:52 AM CDT Appointments - Same Day/Next Day Patient would like appointment with: her either provider or nurse Primary Allocations Clerk: Monica Gonzalez MD If requested clinician is unavailable, is it okay to be seen by another clinician? Yes Patient requesting appointment for: Knee Injections for pain, Cortizone Is this a symptom? No, Pts knee pain is acting up Wants/Needs to be seen within: 2 week(s) Is it okay to leave detailed message on your voicemail? Yes documented in this encounter Plan of Treatment Upcoming Encounters Date Type Department Care Team Description 10/26/2023 4:00 PM ACOUSTICAL TILE PATTERNMAKER Appointment [facility] [address] [place] [address] Renetta Montoya, [facility] [address] [place] [address] documented as of this encounter Visit Diagnoses Not on filedocumented in this encounter Care Teams Plaster Form Maker Relationship Specialty Start Date End Date Monica Gonzalez MD [address], [place] [address] PCP - General 11/27/09 documented as of this encounter
--- OUTSIDE RECORDS SUMMARY | 2023-10-13 11:21 | XMS_ITS | Encounter Summary ---
Author Name Unknown Organization [facility] Address [address] [place] [address] Care Team Providers Care Microarray Analyst Name Role Phone Monica Gonzalez MD Primary Care Provider [phone] Reason for Referral * Procedure/Equipment (Routine) - Incomplete Specialty Diagnoses / Procedures Referred By Contac t Referred To Contact Diagnoses PMB (postmenopausal bleeding) Procedures OBGYN Pelvic/Dental Manager Ultrasound Stephanie Schumacher MD [address] [place] [address] Referral ID Status Reason Start Date Expiration Date V isits Requested Visits Authorized [id number] Incomplete 10/20/2022 01/19/2024 1 1 Y DUTY CUSTODIAN Encounter Details Date Type Department Care Team Description 10/20/2022 Notes/Orders [facility] OB-LABORER CHEMICAL PROCESSING Ultrasound [place] [address] [place] [address] [address]. [place], [place] [id number] Stephanie Schumacher MD [address] [place] [address] PMB (postmenopausal bleeding) (Primary Dx) Social History Tobacco Use Types Packs/Day Years [...] Department Care Team Description 10/26/2023 4:00 PM HEAVY DUTY CUSTODIAN Appointment [facility] [address] [place] [address] Renetta Montoya, [facility] [address] [place] [address] Scheduled Orders Name Type Priority Associated Diagnoses Orde r Schedule OBGYN Pelvic/Dental Manager Ultrasound Imaging New Routine PMB (postmenopausal bleeding) Expected: 10/20/2022, Expires: 10/20/2023 documented as of this encounter Visit Diagnoses Diagnosis PMB (postmenopausal bleeding)- Primary Postmenopausal bleeding documented in this encounter Care Teams Microarray Analyst Relationship Specialty Start Date End Date Monica Gonzalez MD [address] [place] [address] PCP - General 11/27/09 documented as of this encounter
--- OUTSIDE RECORDS SUMMARY | 2023-10-13 11:21 | XMS_ITS | Encounter Summary ---
Author Name Unknown Organization [facility] Address [address] [place] [address] Care Team Providers Care Doctor Of Veterinary Medicine Name Role Phone Monica Gonzalez MD Primary Care Provider [phone] Reason for Visit * Procedure/Equipment (Routine) - Incomplete Specialty Diagnoses / Procedures Referred By Contac t Referred To Contact Diagnoses Contusion of other part of head, initial encounter Procedures CT Head WO IV Cont Kristin Rouse MD [address] [place] [address] Referral ID Status Reason Start Date Expiration Date V isits Requested Visits Authorized [id number] Incomplete 10/17/2022 01/16/2024 1 1 Encounter Details Date Type Department Care Team Description 10/17/2022 6:20 PM MANAGER OF PMO Ancillary Procedure [facility] [address] [address] Scan [address] [place] [address] Kristin Rouse MD [address] [place] [address] Contusion of other part of head, initial encounter Social History Tobacco Use Types Packs/Day Years [...] Department Care Team Description 10/26/2023 4:00 PM MANAGER OF PMO Appointment [facility] [address] [place] [address] Lindsay Renetta L, [facility] [address] [place] [address] documented as of this encounter Procedures Procedure Name Priority Date/Time Associated Diagnosis Comments CT HEAD WO IV CONT STAT 10/17/2022 6: 05 PM MANAGER OF PMO Contusion of other part of head, initial encounter documented in this encounter Results * CT Head WO IV Cont (10/17/2022 6:05 PM MANAGER OF PMO) Anatomical Region Laterality Modality Head Computed Tomogra phy 10/17/2022 5:57 PM MANAGER OF PMO Impressions 10/17/2022 6:14 PM MANAGER OF PMO COMPARISON: ??CT 10/28/2013. TECHNIQUE: ??Images of the head were obtained without contrast. FINDINGS: ?? Small superficial soft tissue hematoma overlying the right frontal region. No underlying fracture. The underlying right frontal sinus, and remainder of paranasal sinuses and mastoid air cells, clear were seen. There is no evidence of intracranial hemorrhage, mass effect, midline shift, acute infarct or hydrocephalus. ??There are no abnormal intraaxial or extraaxial fluid collections. ??Brain parenchyma, ventricles, sulci and cisternal areas appear normal and there are no areas of abnormal brain density. ??Visualized paranasal sinuses are well-aerated and clear. ??Calvaria and skull base appear intact and bony structures are unremarkable. IMPRESSION: ?? 1. No acute intracranial finding. 2. Right frontal scalp hematoma. Narrative Procedure Note Jay Zelaya MD - 10/17/2022 IMPRESSION COMPARISON: CT 10/28/2013. TECHNIQUE: Images of the head were obtained without contrast. FINDINGS: Small superficial soft tissue hematoma overlying the right frontal region.No underlying fracture. The underlying right frontal sinus, and remainderof paranasal sinuses and mastoid air cells, clear were seen. There is no evidence of intracranial hemorrhage, mass effect, midlineshift, acute infarct or hydrocephalus. There are no abnormal intraaxialor extraaxial fluid collections. Brain parenchyma, ventricles, sulci andcisternal areas appear normal and there are no areas of abnormal braindensity. Visualized paranasal sinuses are well-aerated and clear.Calvaria and skull base appear intact and bony structures areunremarkable. IMPRESSION: 1. No acute intracranial finding. 2. Right frontal scalp hematoma. Kristin Rouse MD RAD CT documented in this encounter Visit Diagnoses Diagnosis Contusion of other part of head, initial encounter documented in this encounter Care Teams Doctor Of Veterinary Medicine Relationship Specialty Start Date End Date Monica Gonzalez MD [address] [place] [address] PCP - General 11/27/09 documented as of this encounter
--- OUTSIDE RECORDS SUMMARY | 2023-10-13 11:21 | XMS_ITS | Encounter Summary ---
Author Name Unknown Organization [facility] Address [address] [place] [address] Care Team Providers Care Data Entry Representative Name Role Phone Monica Gonzalez MD Primary Care Provider [phone] Reason for Visit * Reason Comments [place] [facility] #3 crown prep Encounter Details Date Type Department Care Team Description 11/19/2022 7:50 AM CLINICAL SYSTEMS EDUCATOR Office Visit [facility] [address] [place], [place] [phone] [place] [address] [place] [address] [place] [facility] (#3 crown prep ) Social History Tobacco Use Types Packs/Day Years [...] as of this encounter Progress Notes * Jagruti Waggoner DDS - 11/19/2022 7:50 AM CST DENTAL VISIT NOTE Subjective Reason for Visit/Chief Complaint: Araceli is a 51 y.o. female who presents for [place] [facility] (#3 crown prep ) Chief Complaint: [place] came off Objective/Assessment Chart Review: The following information was reviewed with the patient: Medical history, Dental history, Problem list, Periodontal charting, and Radiographs. RADIOGRAPHIC INTERPRETATION: #3 Previous RCT DIAGNOSIS: Loss of retention of dental crown (primary encounter diagnosis) Defective dental yarsanism PROGNOSIS: #3 Favorable Plan Treatment Discussion: I discussed the Dental findings, Prognosis, Treatment options, Risks and complications associated with procedure, and Billing/Treatment estimate with patient. All questions answered and the patient gave informed consent to proceed with dental treatment/services. Procedural Pause: Patient identity verified: Yes Treatment plan/site verified with the patient: Yes Instruments/equipment verified: Yes Any medication/allergy contraindications: No Completed Procedures: ANESTHESIA: Topical with 20% benzocaine 1.0 carpules 2% lidocaine with 1:100,000 epinephrine was administered with infiltration and PDL in #3 No adverse side effects observed. Anesthesia was administered by Jagruti Waggoner DDS CROWN AND BRIDGE PREP, #3: Replacement prosthesis from 5+ years ago Prepped tooth presents with incomplete fracture Preoperative radiograph: Reviewed Isolated area with high speed suction, cotton rolls, a cheek guard, and retraction cord with chemical hemostatic agent # 00 and # 01 cords placed and removed before impression Applied Cavity conditioner Triple tray and Separate bite registration impression made with polyvinyl siloxane material : Shade: 2M1 tono 3 D master shade guide genie light body and Imprint III heavy body used for impression, blue mousse for bite registration Temporary crown made with custom material : Seated with non-eugenol Zone free used for temp cement Verified occlusion, contacts, margins, aesthetics, and cement removal POST-OP INSTRUCTIONS: Patient was advised of normal post-operative instructions, potential for post-operative sensitivity, and the need to exercise care because of the risk of fracture 600 mg Ibuprofen and 1000 mg Acetaminophen at six hour intervals. Advised not to take more than 2400 mg of Ibuprofen or 3000 mg of Acetaminophen in a 24-hour period Care was assisted by Magdalena Arzola Planned Visit: [place] seat Jagruti Waggoner DDS 11/19/2022, 9:07 AM --End of Progress Note-- 8:05 AM ICAL SYSTEMS EDUCATOR documented in this encounter Plan of Treatment Upcoming Encounters Date Type Department Care Team Description 10/26/2023 4:00 PM CLINICAL SYSTEMS EDUCATOR Appointment [facility] [address] [place] [address] Renetta Montoya, [facility] [address] [place] [address] documented as of this encounter Procedures Procedure Name Priority Date/Time Associated Diagnosis Comments 3 CROWN BUILDUP INCLUDING PINS Routine 11/19/2022 7:50 AM CLINICAL SYSTEMS EDUCATOR Loss of retention of dental crown 3 PORCELAIN CROWN Routine 11/19/2022 7:50 AM CLINICAL SYSTEMS EDUCATOR Loss of retention of dental crown Defective dental yarsanism documented in this encounter Visit Diagnoses Diagnosis Loss of retention of dental crown- Primary Defective dental yarsanism Unspecified unsatisfactory yarsanism of tooth documented in this encounter Care Teams Data Entry Representative Relationship Specialty Start Date End Date Monica Gonzalez MD [address] [place] [address] PCP - General 11/27/09 documented as of this encounter
--- OUTSIDE RECORDS SUMMARY | 2023-10-13 11:21 | XMS_ITS | Encounter Summary ---
Author Name Unknown Organization [facility] Address [address] [place] [address] Care Team Providers Care Soda Dialyzer Name Role Phone Monica Gonzalez MD Primary Care Provider [phone] Encounter Details Date Type Department Care Team Description 10/20/2022 Notes/Orders [facility] OB-MACHINE SHOP INSTRUCTOR Ultrasound [place] [address] [place] [address] Stephanie Schumacher MD [address] [place], [place] [phone] Social History Tobacco Use Types Packs/Day Years [...] Department Care Team Description 10/26/2023 4:00 PM SHREDDED FILLER CIGAR MAKER MACHINE Appointment [facility] [address] [place] [address] Renetta Montoya, [facility] [address] [place] [address] documented as of this encounter Visit Diagnoses Not on filedocumented in this encounter Care Teams Soda Dialyzer Relationship Specialty Start Date End Date Monica Gonzalez MD [address] [place] [address] PCP - General 11/27/09 documented as of this encounter
--- OUTSIDE RECORDS SUMMARY | 2023-10-13 11:21 | XMS_ITS | Encounter Summary ---
Author Name Unknown Organization [facility] Address [address] [place] [address] Care Team Providers Care Gambreler Helper Name Role Phone Monica Gonzalez MD Primary Care Provider [phone] Reason for Visit * Reason Onset Date Comments Refill 01/05/2023 Lisdexamfetamine (Vyvanse )70 mg Encounter Details Date Type Department Care Team Description 01/05/2023 Refill [facility] [address] [place] [address] Monica Gonzalez MD [address] [place] [address] Refill (Lisdexamfetamine (Vyvanse )70 mg) Social History Tobacco Use Types Packs/Day Years [...] * Interface, Out Surescripts Prov Query - 01/05/2023 2:01 PM CDT lisdexamfetamine (VYVANSE) 70 MG capsule ADHD (controlled substance) -> Medication cannot be delegated. Last qualifying visit: 12/09/2022 (with MONICA GONZALEZ) Next scheduled visit: None Last ordered by MONICA GONZALEZ: 12/02/2022 (34 days ago) QTY: 30, Refills: 0, Sig: take 1 capsule (70 mg) by mouth daily. (unchanged) [employer] Embedded Refills, Reference: [id number], 01/05/2023 2:01:42 PM CDT, Pool: KYLE REFILL RN ([id number]) * Interface, Out [employer] Query - 01/05/2023 2:01 PM CDT No Careplan note found by [employer]. documented in this encounter Plan of Treatment Upcoming Encounters Date Type Department Care Team Description 10/26/2023 4:00 PM MACHINE PRESSER Appointment [facility] [address] [place] [address] Renetta Montoya, [facility] [address] [place], [place] [phone] documented as of this encounter Visit Diagnoses Diagnosis Attention deficit disorder, unspecified hyperactivity presence documented in this encounter Care Teams Gambreler Helper Relationship Specialty Start Date End Date Monica Gonzalez MD [address] [place] [address] PCP - General 11/27/09 documented as of this encounter
--- OUTSIDE RECORDS SUMMARY | 2023-10-13 11:21 | XMS_ITS | Encounter Summary ---
Author Name Unknown Organization [facility] Address [address] [place] [address] Care Team Providers Care Drier Operator Name Role Phone Monica Gonzalez MD Primary Care Provider [phone] Reason for Visit * Reason Onset Date Comments Refill 12/01/2022 lisdexamfetamine (VYVANSE) 70 MG capsule Encounter Details Date Type Department Care Team Description 12/01/2022 Refill [facility] [address] [place] [address] Monica Gonzalez MD [address] [place], [place] [phone] Refill (lisdexamfetamine (VYVANSE) 70 MG capsule) Social [...] * Interface, Out Surescripts Prov Query - 12/01/2022 10:29 AM CDT lisdexamfetamine (VYVANSE) 70 MG capsule ADHD (controlled substance) -> Medication cannot be delegated. -> A qualifying visit was not found within the last 2 years. Last qualifying visit: None (A recent visit (in Family Practice with ROS COSTA) was found) Next scheduled visit: None Last ordered by ROSELYN WAGNER L: 10/17/2022 (45 days ago) QTY: 30, Refills: 0, Sig: take one capsule by mouth one time daily (changed but equivalent) [employer] Embedded Refills, Reference: [id number], 12/01/2022 10:29:29 AM CDT, Pool: KYLE REFILL INDIO ([id number]) * Interface, Out [employer] Query - 12/01/2022 10:29 AM CDT No Careplan note found by [employer]. documented in this encounter Plan of Treatment Upcoming Encounters Date Type Department Care Team Description 10/26/2023 4:00 PM PEANUT GRADER Appointment [facility] [address] [place] [address] Renetta Montoya, [facility] [address] [place], [place] [phone] documented as of this encounter Visit Diagnoses Diagnosis Attention deficit disorder, unspecified hyperactivity presence documented in this encounter Care Teams Drier Operator Relationship Specialty Start Date End Date Monica Gonzalez MD [address] [place] [address] PCP - General 11/27/09 documented as of this encounter
--- OUTSIDE RECORDS SUMMARY | 2023-10-13 11:21 | XMS_ITS | Encounter Summary ---
Author Name Unknown Organization [facility] Address [address] [place] [address] Care Team Providers Care Direct Support Professional Home Health Name Role Phone Monica Gonzalez MD Primary Care Provider [phone] Reason for Visit * Procedure/Equipment (Routine) - Incomplete Specialty Diagnoses / Procedures Referred By Contac t Referred To Contact Diagnoses Post-menopausal bleeding Leiomyoma Procedures OBGYN Pelvic/Aviation Program Manager Ultrasound OBGYN Pelvic/Aviation Program Manager Ultrasound Stephanie Schumacher MD [address] [place] [address] Referral ID Status Reason Start Date Expiration Date V isits Requested Visits Authorized [id number] Incomplete 10/08/2022 01/07/2024 1 1 Encounter Details Date Type Department Care Team Description 10/20/2022 9:20 AM SCHOOL LIBRARIAN Office Visit [facility] OB-MOTOR INSPECTION MECHANIC Ultrasound [place] [address] [place], [place] [address] Stephanie Schumacher MD [address] [place] [address] Post-menopausal bleeding; Leiomyoma Social History Tobacco Use Types Packs/Day Years [...] Department Care Team Description 10/26/2023 4:00 PM SCHOOL LIBRARIAN Appointment [facility] [address] [place] [address] LindsayRenetta Bailey, [facility] [address] [place] [address] documented as of this encounter Procedures Procedure Name Priority Date/Time Associated Diagnosis Comments OBGYN PELVIC/MOTOR INSPECTION MECHANIC ULTRASOUND Routine 10/20/2022 9:56 AM SCHOOL LIBRARIAN Post-menopausal bleeding Leiomyoma documented in this encounter Results * (ABNORMAL) OBGYN Pelvic/Aviation Program Manager Ultrasound (10/20/2022 9:56 AM SCHOOL LIBRARIAN) Uterus AP Diameter (Height) 4.60 cm EXTERNAL RESULTS Uterus Longitudinal Diameter (Length) 8.10 cm EXTERNAL RESULTS Uterus Transverse Diameter (Width) 5.30 cm EXTERNAL RESULTS Uterus Volume 103.40 ml PRODUCTION ROUSTABOUT AL RESULTS Endometrium Thickness 5.80 mm EXTERNAL RESULTS Left Ovary Perpendicular Diameter (Height) 2.90 cm EXTERNAL RESULTS Left Ovary Longitudinal Diameter (Length) 4.50 cm EXTERNAL RESULTS Left Ovary Hilum-Cortex Diameter (Width) 3.80 cm EXTERNAL RESULTS Left Ovary Volume 25.97 ml EX TERNAL RESULTS Right Ovary Perpendicular Diameter (Height) 1.30 cm EXTERNAL RESULTS Right Ovary Longitudinal Diameter (Length) 1.80 cm EXTERNAL RESULTS Right Ovary Hilum-Cortex Diameter (Width) 1.80 cm EXTERNAL RESULTS Right Ovary Volume 2.21 ml E XTERNAL RESULTS Anatomical Region Laterality Modality Pelvis Ultrasound Narrative 10/20/2022 10:34 AM SCHOOL LIBRARIAN Table formatting from the original result was not included. MOTOR INSPECTION MECHANIC Ultrasound Exam performed on: ??10/20/2022 Referring provider: Stephanie Schumacher MD Referring clinic: [facility] Clinical indications: Post-menopausal bleeding Leiomyoma LMP: ??About 1 yr ado, Pt has been bleeding for last 4-5 weeks Ibm Websphere Portal Developer(s) initials: DP The pelvic organs are imaged using: both transvaginal and transabdominal transducers to better visualize the pelvic anatomy. Today's ultrasound was compared to previous report from: none Measurements and comments Uterus: Length Height Width 8.10 4.60 5.30 cm Position: ??anteverted Comments: ??irregular Cervix and lower uterine segment are: Normal Myometrium: heterogeneous Myomata: Location Longitudinal AP Transverse ?? Ant Mid 1.2 0.9 1.0 cm Intramural, ??Slightly touching the endometrial cavity Ant Rt 1.4 0.8 1.3 cm intramural Ant Rt 1.1 0.8 1.1 cm intramural Ant Lt 1.2 0.7 0.7 cm intramural Comments: calcified Saline infusion sonohysterogram: no. Pt does not want to have SIS and Possible endometrial BX done today due to her work conflict, She will call to reschedule these procedure in future when she is ready. The order for future appt is in Epic. Endometrium: 5.80 mm, Thickened with cystic changes Right ovary: ?? Length Height Width Volume 1.80 1.30 1.80 cm 2.21 ml Comments: appears normal Left ovary: Length Height Width Volume 4.50 2.90 3.80 cm 25.97 ml Comments: 3.2 x 2.5 x 3.2 cm anechoic area seen , no color flow noted Adnexa: ??no masses seen Peritoneal fluid: absent Other procedures done: none Impression: Uterus with endometrial cavity measuring 5.8 mm in thickness with some microcystic changes noted. ??1 area vascularity noted in the cavity in the mid portion. This might be due to the anterior mid myoma above which looks like it could distort the cavity. Right ovary is within normal limits left ovary has an anechoic 3.2 x 2.5 x 3.2 cm cyst with no vascularity over the cyst. Several small myomas described above. Plan: These findings were reviewed with the patient. She will follow up with referring provider. Recommend saline infusion sonography to better assess the cavity and endometrial biopsy since cavity is slightly thicker than normal for a postmenopausal patient. Patient deferred these today, she says she will set up an appointment for these in the future. Stephanie Schumacher MD RAD US documented in this encounter Visit Diagnoses Diagnosis Post-menopausal bleeding Postmenopausal bleeding Leiomyoma Other benign neoplasm of connective and other soft tissue of unspecified site documented in this encounter Care Teams Direct Support Professional Home Health Relationship Specialty Start Date End Date Monica Gonzalez MD [address] [place] [address] PCP - General 11/27/09 documented as of this encounter
--- OUTSIDE RECORDS SUMMARY | 2023-10-13 11:21 | XMS_ITS | Encounter Summary ---
Author Name Unknown Organization [facility] Address [address] [place] [address] Care Team Providers Care Relationship Manager Name Role Phone Monica Gonzalez MD Primary Care Provider [phone] Reason for Visit * Reason Comments Future Appointments Encounter Details Date Type Department Care Team Description 10/22/2022 Telephone [facility] [address] [place] [address] Breanna Rawls, FOOD PRODUCTION ASSOCIATE, [address] [phone] Future Appointments Social History Tobacco Use Types Packs/Day Years [...] as of this encounter Nursing Notes * Magy Joiner - 10/22/2022 2:08 PM CST Spoke with patient and let her know she needs to schedule with services tech MD, patient was at work and unable to r/s at this time Patient will call back to schedule Appt with Breanna Rawls is cancelled PULLER * Valerie Pineda CMA - 10/22/2022 8:25 AM CST Patient should see HEALTHCARE NETWORK CONSULTANT MD for post menopausal bleeding, please help reschedule with a MD. PULLER documented in this encounter Plan of Treatment Upcoming Encounters Date Type Department Care Team Description 10/26/2023 4:00 PM WOOL PULLER Appointment [facility] [address] [place], [place] [phone] Renetta Montoya, [facility] [address] [place] [address] documented as of this encounter Visit Diagnoses Not on filedocumented in this encounter Care Teams Relationship Manager Relationship Specialty Start Date End Date Monica Gonzalez MD [address] [place] [id number] PCP - General 11/27/09 documented as of this encounter
--- OUTSIDE RECORDS SUMMARY | 2023-10-13 11:21 | XMS_ITS | Encounter Summary ---
Author Name Unknown Organization [facility] Address [address], [place] [address] Care Team Providers Care Wafer Fab Operator Name Role Phone Monica Gonzalez MD Primary Care Provider [phone] Reason for Visit * Reason Comments APPOINTMENT REQUEST Called and lm for pt to call us to schedule her crown appt. I picked the wrong call this was actually an outgoing call. Encounter Details Date Type Department Care Team Description 12/30/2022 Telephone [facility] [address] [place] [address] Jagruti Waggoner, DDS [address] [place] [address] APPOINTMENT REQUEST (Called and lm for pt to call us to schedule her crown appt. I picked the wrong call this was actually an outgoing call.) Social History Tobacco Use Types Packs/Day Years [...] Department Care Team Description 10/26/2023 4:00 PM HAND ICER Appointment [facility] [address] [place] [address] Renetta Montoya, [facility] [address] [place], [place] [phone] documented as of this encounter Visit Diagnoses Not on filedocumented in this encounter Care Teams Wafer Fab Operator Relationship Specialty Start Date End Date Monica Gonzalez MD [address] [place] [id number] PCP - General 11/27/09 documented as of this encounter
--- OUTSIDE RECORDS SUMMARY | 2023-10-13 11:21 | XMS_ITS | Encounter Summary ---
Author Name Unknown Organization [facility] Address [address] [place] [address] Care Team Providers Care Field Adjuster Name Role Phone Monica Gonzalez MD Primary Care Provider [phone] Reason for Visit * Reason Comments Problem Focused Exam Encounter Details Date Type Department Care Team Description 11/17/2022 Telephone [facility] [address] [place], [place] [phone] [place] DDS [address] [place], [place] [id number] Problem Focused Exam Social History Tobacco Use Types Packs/Day Years [...] as of this encounter Nursing Notes * Maria A Hein - 11/17/2022 9:30 AM CST Pt states the crown was not done here. The crown is like 30 years old. AW MATCHER documented in this encounter Plan of Treatment Upcoming Encounters Date Type Department Care Team Description 10/26/2023 4:00 PM RIPSAW MATCHER Appointment [facility] [address] [place] [address] Renetta Montoya, [facility] [address] [place], [place] [phone] documented as of this encounter Visit Diagnoses Not on filedocumented in this encounter Care Teams Field Adjuster Relationship Specialty Start Date End Date Monica Gonzalez MD [address] [place] [address] PCP - General 11/27/09 documented as of this encounter
--- OUTSIDE RECORDS SUMMARY | 2023-10-13 11:21 | XMS_ITS | Encounter Summary ---
Author Name Unknown Organization [facility] Address [address] [place] [address] Care Team Providers Care Boiler Repair Supervisor Name Role Phone Monica Gonzalez MD Primary Care Provider [phone] Encounter Details Date Type Department Care Team Description 12/29/2022 Telephone [facility] [address] [place], [place] [phone] Jagruti Waggoner DDS [address] [place] [address] Social History Tobacco Use Types Packs/Day Years [...] as of this encounter Nursing Notes * Jagruti Waggoner DDS - 12/29/2022 5:04 PM CDT Erroneous entry Jagruti Waggoner DDS 12/29/2022, 5:05 PM documented in this encounter Plan of Treatment Upcoming Encounters Date Type Department Care Team Description 10/26/2023 4:00 PM CARDIAC CATH TECHNOLOGIST Appointment [facility] [address] [place] [address] Renetta Montoya, [facility] [address] [place] [address] documented as of this encounter Visit Diagnoses Not on filedocumented in this encounter Care Teams Boiler Repair Supervisor Relationship Specialty Start Date End Date Monica Gonzalez MD [address] [place] [address] PCP - General 11/27/09 documented as of this encounter
--- OUTSIDE RECORDS SUMMARY | 2023-10-13 11:21 | XMS_ITS | Encounter Summary ---
Author Name Unknown Organization [facility] Address [address] [place] [address] Care Team Providers Care Parking Worker Name Role Phone Monica Gonzalez MD Primary Care Provider [phone] Reason for Visit * Reason Comments Problem Focused Exam The upper right microfilm machine operator wn is loose and sharp Encounter Details Date Type Department Care Team Description 11/18/2022 11:00 AM LINE TECHNICIAN Office Visit [facility] [address] [place], [place] [phone] [place] D[place] [address] [place], [place] [phone] Problem Focused Exam (The upper right crown is loose and sharp ) Social History Tobacco Use Types Packs/Day [...] Progress Notes * Jagruti Waggoner DDS - 11/18/2022 11:00 AM CST DENTAL EMERGENCY VISIT NOTE Terry Charles is a 51 y.o. female who presents for Problem Focused Exam Chief Complaint: Loose crown upper right happed last night can feel it move still in the mouth, thecheek side is very sharp and there is a gap that I can get finger nail in Pain Assessment: Current level of pain: 0/10 Worst pain level associated with this problem: 0/10 Location of pain: Maxillary right Nature of pain: N/A Eliciting factors: N/A Duration: N/A Alleviating factors: N/A Swelling: None Objective/Assessment The following information was reviewed with the patient: Medical history, Dental history, and Radiographs. Radiographic Interpretation: #3 Previous RCT Diagnosis: Loss of retention of dental crown (primary encounter diagnosis) Prognosis: #3 Favorable Discussed with patient to try to wiggle out the crown more than likely the build up under broke, but chances are that we might not be able to save the crown if the crown broke under the gum, Pt awareof it and still wants us to try removing the crown Plan I discussed the Dental findings, Prognosis, Treatment options, Risks and complications associated with procedure, and Billing/Treatment estimate with the patient. All questions answered and they expressed understanding. Procedural Pause: Patient identity verified: Yes Treatment plan/site verified with the patient: Yes Instruments/equipment verified: Yes Any medication/allergy contraindications: No Removed the old crown the entire build up came off with the crown , explained patient that we will have to do a new build up and do a new crown, pt understood cant re cement the old crown Completed Procedures: ANESTHESIA: None used, procedure was minimally invasive. SEDATIVE YARSANI, #3: Prepared with complete removal of the existing congregational Isolated area with high speed suction, cotton rolls, and a cheek guard Applied Cavity conditioner Preparation filled with glass ionomer material : Shade: A2 Post-Op Instructions: Patient was advised of normal post-operative instructions, potential for post-operative sensitivity, and the need to exercise care because of the risk of fracture Care was assisted by Yamila Next Planned Visit: crown prep # 3 No Medications ordered this encounter Jagruti Waggoner DDS 11/18/2022, 11:45 AM TECHNICIAN documented in this encounter Plan of Treatment Upcoming Encounters Date Type Department Care Team Description 10/26/2023 4:00 PM LINE TECHNICIAN Appointment [facility] [address] [place] [address] [place] [address] [place] [address] documented as of this encounter Procedures Procedure Name Priority Date/Time Associated Diagnosis Comments FILM-PERIAPICAL FIRST Routine 11/18/2022 11:00 AM LINE TECHNICIAN Loss of retention of dental crown 3 MODBL SEDATIVE FILLING Routine 11/18/2022 11:00 AM LINE TECHNICIAN Loss of retention of dental crown LIMITED ORAL EVALUATION Routine 11/18/19 11:00 AM LINE TECHNICIAN Loss of retention of dental crown documented in this encounter Visit Diagnoses Diagnosis Loss of retention of dental crown- Primary documented in this encounter Care Teams Parking Worker Relationship Specialty Start Date End Date Monica Gonzalez MD [address] [place] [address] PCP - General 11/27/09 documented as of this encounter
--- OUTSIDE RECORDS SUMMARY | 2023-10-13 11:21 | XMS_ITS | Encounter Summary ---
Author Name Unknown Organization [facility] Address [address] [place] [address] Care Team Providers Care Parts Salesperson Name Role Phone Monica Gonzalez MD Primary Care Provider [phone] Encounter Details Date Type Department Care Team Description 12/29/2022 Notes/Orders [facility] [address] [place], [place] [phone] Jagruti Waggoner DDS [address] [place] [address] Social History Tobacco Use Types Packs/Day Years [...] Progress Notes * Jagruti Waggoner DDS - 12/29/2022 4:47 PM CDT Treatment planned crown on # 15 that was in the draft as per patient Jagruti Waggoner DDS 12/29/2022, 4:48 PM documented in this encounter Plan of Treatment Upcoming Encounters Date Type Department Care Team Description 10/26/2023 4:00 PM CASTING AND PASTING SUPERVISOR Appointment [facility] [address] [place] [address] Renetta Montoya, [facility] [address] [place] [address] Scheduled Orders Name Type Priority Associated Diagnoses Orde r Schedule 15 15 CROWN SEAT Dental Procedures Routine 1 Occurrences starting 12/29/2022 documented as of this encounter Visit Diagnoses Not on filedocumented in this encounter Care Teams Parts Salesperson Relationship Specialty Start Date End Date Monica Gonzalez MD [address] [place] [address] PCP - General 11/27/09 documented as of this encounter
--- OUTSIDE RECORDS SUMMARY | 2023-10-13 11:21 | XMS_ITS | Encounter Summary ---
Author Name Unknown Organization [facility] Address [address] [place] [address] Care Team Providers Care Pilot Boat Operator Name Role Phone Monica Gonzalez MD Primary Care Provider [phone] Reason for Visit * Reason Comments CONTROL COUNSELING Encounter Details Date Type Department Care Team Description 12/09/2022 3:00 PM CDT Office Visit [address] [address] [place] [address] [place] [address] Irregular menses (Primary Dx); control counseling Social History Tobacco Use Types Packs/Day Years [...] Sign Reading Time Taken Comments Blood Pressure 120/80 12/09/2022 3:38 PM CDT Pulse 97 12/09/2022 3:37 PM CDT Temperature 36.9 ??C (98.4 ??F) 12/09/2022 3:00 PM CD T Respiratory Rate - - Oxygen Saturation - - Inhaled Oxygen Concentration - - Weight 65 kg (143 lb 6.4 oz) 12/09/2022 3:00 PM CDT Height 172.7 cm (5' 8) 12/09/2022 3:00 PM CDT Body Mass Index 21.8 12/09/2022 3:00 PM CDT documented in this encounter Patient Instructions * Patient Instructions* Monica Gonzalez MD - 12/09/2022 3:00 PM CDT Check with your insurance on Shingrix coverage. documented in this encounter Progress Notes * Monica Gonzalez MD - 12/09/2022 3:00 PM CDT Historical: Chief Complaint Patient presents with CONTROL COUNSELING Other Symptoms Description: discuss control options How long have you had the symptoms? N/A How frequent are your symptoms: N/A What seems to trigger or make symptoms worse? N/A What seems to make symptoms better? N/A Was told by a provider at [facility] (that she goes to for her weight management meds) that she was post-menopausal (based apparently on one FSH level) so they encouraged her to have her iud removed. (Copper iud). So she had it removed. Now having very regular periods. Every month. Just wants to make sure she doesn't get I have personally reviewed the patient's allergies, medications, and past medical history in detailand updated the patient record as necessary. Observed: BP 120/80 Pulse 97 Temp 98.4 ??F (36.9 ??C) (Tympanic) Ht 5' 8 (1.727 m) Wt 143 lb 6.4 oz (65 kg) LMP 11/30/2022 BMI 21.80 kg/m?? Physical Exam: General Appearance: alert, well appearing, and in no apparent distress Heart: regular rate and rhythm and no murmurs, gallops or rubs Reviewed labs, ultrasound (done for post-menopausal bleeding) Assessment/Plan: Irregular menses (primary encounter diagnosis) Comment: I don't think she was ever post-menopausal. She had never gone a year without menses. So I'm not worried at all about the post-menopausal bleeding or the ultrasound that she had done. I think she is still ovulating regularly. Discussed options and decided on low dose ocp's. We'll recheckher FSH out of curiosity today as well as estradiol level. Plan: levonorgestrel-ethinyl estrad (ALESSE) 0.1-20 MG-MCG tablet, FSH, Estradiol, FSH, Estradiol control counseling Comment: see above Plan: Test (Urine), Test (Urine) Please see orders and patient instructions Monica Gonzalez MD documented in this encounter Plan of Treatment Upcoming Encounters Date Type Department Care Team Description 10/26/2023 4:00 PM RN SANE Appointment [facility] [address] [place] [address] Renetta Montoya, [facility] [address] [place], [place] [phone] documented as of this encounter Procedures Procedure Name Priority Date/Time Associated Diagnosis Comments ESTRADIOL Routine 12/09/2022 3:35 PM CDT Irregular menses FSH Routine 12/09/2022 3:35 PM CDT Irregular menses TEST (URINE) Waiting 12/09/2022 2:53 PM CDT control counseling documented in this encounter Results * Estradiol (12/09/2022 3:35 PM CDT) Estradiol 100 pg/mL 12/09/2022 7:38 PM CDT [facility] Blood Venipuncture / Unknown 12/09/2022 3:35 PM CDT 12/09/2022 3:49 PM CDT Narrative [facility] - 12/09/2022 7:38 PM CDT The drug mifepristone may cause interference with the estradiol assay leading to significant falsely elevated estradiol results for up to two weeks following last dose. Expected values for menstruating females Follicular phase: 21-251 pg/mL Mid cycle phase: 38-649 pg/mL Luteal phase: 21-312 pg/mL Expected values for post menopausal females On HRT: <10-144 pg/mL Not on HRT: <10-28 pg/mL Monica Gonzalez MD LAB_1 Performing Organization Address [facility] Co de Phone Number [facility] [address] [address], [facility] [phone] * FSH (12/09/2022 3:35 PM CDT) FSH 14.5 mIU/mL 12/09/2022 7:38 PM CDT [facility] Blood Venipuncture / Unknown 12/09/2022 3:35 PM CDT 12/09/2022 3:49 PM CDT Narrative [facility] - 12/09/2022 7:38 PM CDT Expected values for mensturating females Follicular Phase: 3.0-8.1 mIU/mL Mid-Cycle Peak: 2.6-16.7 mIU/mL Luteal Phase: 1.4-5.5 mIU/mL Post Menopausal Females without HRT: 26.8-133.4 mIU/mL Monica Gonzalez MD LAB_1 Performing Organization Address [facility] Co de Phone Number [facility] [address] [address], [facility] [phone] * Test (Urine) (12/09/2022 2:53 PM CDT) HCG, Urine Negative Negative 12/09/2022 3:03 PM CDT [facility] () Urine Non-blood Collection / Unknown 12/09/2022 2:53 PM CDT 12/09/2022 3:00 PM CDT Monica Gonzalez MD LAB_1 Performing Organization Address City/[facility]/ZIP Co de Phone Number [facility] () [address] [place] [address], [facility] [phone] documented in this encounter Visit Diagnoses Diagnosis Irregular menses- Primary Irregular menstrual cycle control counseling General counseling for initiation of other contraceptive measures documented in this encounter Care Teams Pilot Boat Operator Relationship Specialty Start Date End Date Monica Gonzalez MD [address] [place] [address] PCP - General 11/27/09 documented as of this encounter
--- OUTSIDE RECORDS SUMMARY | 2023-10-13 11:21 | XMS_ITS | Encounter Summary ---
Author Name Unknown [facility] Address [address] [place] [address] Care Team Providers Care Senior Maintenance Technician Name Role Phone Monica Gonzalez MD Primary Care Provider [phone] Reason for Visit * Reason Comments [facility] [place] del ointment Encounter Details Date Type Department Care Team Description 12/03/2022 7:20 AM CDT Office Visit [facility] [address] [place] [address] [place] [address] [place] [address] [facility] ([facility] appointment ) Social History Tobacco Use Types Packs/Day [...] Progress Notes * Jagruti Waggoner DDS - 12/03/2022 7:20 AM CDT DENTAL VISIT NOTE Subjective Reason for Visit/Chief Complaint: Araceli is a 51 y.o. female who presents for [facility] ([place] [place] appointment ) Chief Complaint: No CC Objective/Assessment Chart Review: The following information was reviewed with the patient: Medical history, Dental history, Problem list, Periodontal charting, and Radiographs. RADIOGRAPHIC INTERPRETATION: #3 RCT treated tooth DIAGNOSIS: Defective dental druze (primary encounter diagnosis) PROGNOSIS: #3 Favorable Plan Treatment Discussion: I discussed the Dental findings, Prognosis, Treatment options, Risks and complications associated with procedure, and Billing/Treatment estimate with patient. All questions answered and the patient gave informed consent to proceed with dental treatment/services. Procedural Pause: Patient identity verified: Yes Treatment plan/site verified with the patient: Yes Instruments/equipment verified: Yes Any medication/allergy contraindications: No Completed Procedures: ANESTHESIA: None used, procedure was minimally invasive. CROWN AND BRIDGE SEAT, #3: [place] cementation with resin-modified glass ionomer RelyX luting plus Radiographs made with druze in place and reviewed Cleaned the crown with Ivoclean before cementation Verified occlusion, contacts, margins, aesthetics, and cement removal POST-OP INSTRUCTIONS: Patient was advised of normal post-operative instructions, potential for post-operative sensitivity, potential need for additional treatment because of proximity to the pulp, and the need to exercise care because of the risk of fracture Care was assisted by Magdalena Arzola Planned Visit: Recall Jagruti Waggoner DDS 12/03/2022, 8:59 AM --End of Progress Note-- 8:56 AM documented in this encounter Plan of Treatment Upcoming Encounters Date Type Department Care Team Description 10/26/2023 4:00 PM SENIOR PAYROLL ADMINISTRATOR Appointment [facility] [address] [place] [address] [place] [address] [place] [address] documented as of this encounter Procedures Procedure Name Priority Date/Time Associated Diagnosis Comments 3 CROWN SEAT Routine 12/03/2022 7:20 AM CDT Defective dental druze documented in this encounter Visit Diagnoses Diagnosis Defective dental druze- Primary Unspecified unsatisfactory druze of tooth documented in this encounter Care Teams Senior Maintenance Technician Relationship Specialty Start Date End Date Monica Gonzalez MD [address] [place] [address] PCP - General 11/27/09 documented as of this encounter
--- OUTSIDE RECORDS SUMMARY | 2023-10-13 11:21 | XMS_ITS | Encounter Summary ---
Author Name Unknown Organization [facility] Address [address] [place] [address] Care Team Providers Care Career Development Specialist Name Role Phone Monica Gonzalez MD Primary Care Provider [phone] Reason for Visit * Reason Comments MEDICATION CHECK Encounter Details Date Type Department Care Team Description 10/20/2022 7:20 AM POT PUSHER Office Visit [address] [address] [place] [address] [place] [address] Skin lesion (Primary Dx); Osteopenia, unspecified location; Chronic pain of right knee Social History Tobacco Use Types Packs/Day Years [...] as of this encounter Progress Notes * Stephanie Schumacher MD - 10/20/2022 7:20 AM CST Historical: Chief Complaint Patient presents with MEDICATION CHECK Medication Check: Which medication(s) are you here to have reviewed/refilled? Ventolin Do you have difficulty taking medications as prescribed? No Do you have medication side effect concerns? No Pt would like some skin spots checked out as well Wants to freeze off some on her face that she has had freezed in the past Knee injections- both knees, mainly right I have personally reviewed the patient's allergies, medications, and past medical history in detailand updated the patient record as necessary. Observed: There were no vitals taken for this visit. Physical Exam: General Appearance: alert, well appearing, and in no apparent distress Skin: left upper forehead--a 2mm size scaly white lesion Left cheek---3mm size erythematous lesion Left chin--2mm size scaly white lesion Cryo performed on all there lesions above Assessment/Plan: 51 yo F w/ pmhx of chronic leukocytosis, ADD, depression, anxiety, migraine and osteopenia seen forf/u Recommend a thorough skin check with derm Reviewed DEXA scan and given total osteoporosis risk score 3% and <1% hip fracture risk, no medsrecommended We have no kenalog today and so asked her ot come back for knee injection 1. Skin lesion 2. Osteopenia, unspecified location 3. Chronic pain of right knee Please see orders and patient instructions Stephanie Schumacher MD PUSHER documented in this encounter Plan of Treatment Upcoming Encounters Date Type Department Care Team Description 10/26/2023 4:00 PM POT PUSHER Appointment [facility] [address] [place] [address] Renetta Montoya, [facility] [address] [place] [address] documented as of this encounter Visit Diagnoses Diagnosis Skin lesion- Primary Unspecified disorder of skin and subcutaneous tissue Osteopenia, unspecified location Chronic pain of right knee documented in this encounter Care Teams Career Development Specialist Relationship Specialty Start Date End Date Monica Gonzalez MD [address] [place] [address] PCP - General 11/27/09 documented as of this encounter
--- OUTSIDE RECORDS SUMMARY | 2023-10-13 11:22 | XMS_ITS | Encounter Summary ---
Author Name Unknown Organization [facility] Address [address] [place] [address] Care Team Providers Care Bioanalyst Name Role Phone Monica Gonzalez MD Primary Care Provider [phone] Encounter Details Date Type Department Care Team Description 07/07/2016 Refill Order [facility] [address] [place] [address] Moncia Gonzalez MD [address] [place] [address] Social History Tobacco Use Types Packs/Day Years Used Date Smoking Tobacco: Former Cigarettes 0.5 1 0 10/03/2011 - 10/03/2012 Smokeless Tobacco: Never Alcohol Use Standard Drinks/Week Comments Yes 0 (1 standard drink = 0.6 oz pur e alcohol) maybe 2 times a year Sex and Gender Information Value Date Recorded Sex Assigned at Female 04/02/2021 3:17 PM CDT Gender Identity Female 04/02/2021 3:17 PM CDT Sexual Orientation Straight 04/02/2021 3: 17 PM CDT documented as of this encounter Nursing Notes * Jaky Llamas CMA - 07/08/2016 8:29 AM CDT Pt notified. Jaky Llamas CMA 07/08/2016, 8:29 AM documented in this encounter Plan of Treatment Upcoming Encounters Date Type Department Care Team Description 10/26/2023 4:00 PM DRIP BOX TENDER Appointment [facility] [address] [place] [address] Renetta Montoya, [facility] [address] [place] [address] documented as of this encounter Visit Diagnoses Diagnosis Encounter for long-term (current) use of medications- Primary Encounter for long-term (current) use of other medications documented in this encounter Additional Health Concerns Infection Onset Date Last Indicated Resolved Time R/O COVID19 07/24/2020 07/24/2020 07/27/2020 3:28 AM DRIP BOX TENDER documented as of this encounter Care Teams Bioanalyst Relationship Specialty Start Date End Date Monica Gonzalez MD [address] [place] [address] PCP - General 11/27/09 documented as of this encounter
--- OUTSIDE RECORDS SUMMARY | 2023-10-13 11:22 | XMS_ITS | Encounter Summary ---
Author Name Unknown Organization [facility] Address [address] [place] [address] Care Team Providers Care Merchandise Distributor Name Role Phone Monica Gonzalez MD Primary Care Provider [phone] Encounter Details Date Type Department Care Team Description 10/17/2015 Emergency Room External to [facility] HEAD LICE EXPOSURE Social History Tobacco Use Types Packs/Day Years [...] Care Team Description 10/26/2023 4:00 PM SENIOR COMPENSATION ANALYST Appointment [facility] [address] [place] [address] Renetta Montoya, [facility] [address] [place] [address] documented as of this encounter Visit Diagnoses Not on filedocumented in this encounter Additional Health Concerns Infection Onset Date Last Indicated Resolved Time R/O COVID19 07/24/2020 07/24/2020 07/27/2020 3:28 AM SENIOR COMPENSATION ANALYST documented as of this encounter Care Teams Merchandise Distributor Relationship Specialty Start Date End Date Monica Gonzalez MD [address] [place], [place] [address] PCP - General 11/27/09 documented as of this encounter
--- OUTSIDE RECORDS SUMMARY | 2023-10-13 11:22 | XMS_ITS | Encounter Summary ---
Author Name Unknown Organization [facility] Address [address] [place] [address] Care Team Providers Care Launch Leader Name Role Phone Monica Gonzalez MD Primary Care Provider [phone] Encounter Details Date Type Department Care Team Description 09/10/2016 Refill Order [address] [id number] Monica Gonzalez MD [address] [place], [place] [id number] Social History Tobacco Use Types Packs/Day Years [...] Nursing Notes * Jaky Llamas CMA - 09/27/2016 10:42 AM CST Letter sent to pt. Jaky Llamas CMA 09/27/2016, 10:42 AM ET MANAGER documented in this encounter Plan of Treatment Upcoming Encounters Date Type Department Care Team Description 10/26/2023 4:00 PM TICKET MANAGER Appointment [facility] [address] [place] [address] Renetta Montoya, [facility] [address] [place] [address] documented as of this encounter Visit Diagnoses Diagnosis Encounter for long-term (current) use of medications- Primary Encounter for long-term (current) use of other medications documented in this encounter Additional Health Concerns Infection Onset Date Last Indicated Resolved Time R/O COVID19 07/24/2020 07/24/2020 07/27/2020 3:28 AM TICKET MANAGER documented as of this encounter Care Teams Launch Leader Relationship Specialty Start Date End Date Monica Gonzalez MD [address] [place] [address] PCP - General 11/27/09 documented as of this encounter
--- OUTSIDE RECORDS SUMMARY | 2023-10-13 11:22 | XMS_ITS | Encounter Summary ---
Author Name Unknown Organization [facility] Address [address] [place] [address] Care Team Providers Care Consumer Science Teacher Name Role Phone Monica Gonzalez MD Primary Care Provider [phone] Reason for Referral * Procedure/Equipment (Routine) - Incomplete Specialty Diagnoses / Procedures Referred By Contac t Referred To Contact Diagnoses Contusion of other part of head, initial encounter Procedures CT Head WO IV Cont Kristin Rouse MD [address] [place] [address] Referral ID Status Reason Start Date Expiration Date V isits Requested Visits Authorized [id number] Incomplete 10/17/2022 01/16/2024 1 1 UTER NUMERICAL CONTROL OPERATOR Reason for Visit * Reason Comments Head Injury Encounter Details Date Type Department Care Team Description 10/17/2022 6:00 PM COMPUTER NUMERICAL CONTROL OPERATOR Office Visit [facility] [address] [place] [address] Kristin Rouse MD [address] [place], [place] [phone] Contusion of other part of head, initial [...] Sign Reading Time Taken Comments Blood Pressure 134/84 10/17/2022 4:58 PM COMPUTER NUMERICAL CONTROL OPERATOR Pulse 99 10/17/2022 4:58 PM COMPUTER NUMERICAL CONTROL OPERATOR Temperature 36.7 ??C (98 ??F) 10/17/2022 4:58 PM COMPUTER NUMERICAL CONTROL OPERATOR Respiratory Rate 18 10/17/2022 4:58 PM COMPUTER NUMERICAL CONTROL OPERATOR Oxygen Saturation 100% 10/17/2022 4:58 PM COMPUTER NUMERICAL CONTROL OPERATOR Inhaled Oxygen Concentration - - Weight - - Height - - Body Mass Index - - documented in this encounter Progress Notes * Kristin Rouse MD - 10/17/2022 6:00 PM CST CC: Forehead contusion HPI: Patient comes alone, last night trying to move heavy box of sodas into the house, she has a bad back and was trying to toss into the house some soda cans that were wheezing. She gathered home enough momentum to throw them into the house when she accidentally struck her right forehead on the door jam. The doorjamb is made a would, no loss of consciousness though she had significant bruising, today continues to have bruising has mild headache head she did injure her neck. She does not take aspirin or blood thinners. She does not feel confused. She still having significant pain and swellingon her forehead. No alcohol use. She lives alone Problem list medication allergies reviewed Physical exam has a large bruise on her right forehead just below her scalp line the area is quite sore to touch 6 x 6 cm is a little bit of bruising down around her right eye she is not photophobic DARIANA a EOMI no hemotympanum nose and throat exam is normal Romberg test shows no pronator drift lungs clear heart exam is normal no gait disturbance Head CT shows no skull fracture or intracranial pathology Assessment/plan: Head contusion, no evidence of concussion low risk for concussion given the location of injury and the mechanism. Patient is mostly reassured she can use Tylenol ibuprofen ice therapy and follow-up if symptoms worsen persist or change. UTER NUMERICAL CONTROL OPERATOR documented in this encounter Nursing Notes * Eleazar Trejo, RN - 10/17/2022 6:00 PM CST Pt hit head on door frame last night. Did not loose consciousness. R side of fore head is busied and swollen. Throbs when bending over. Not on blood blood thinners Dizzy on and off throughout the dayat work Last Td 06/08/2019 UTER NUMERICAL CONTROL OPERATOR documented in this encounter Plan of Treatment Upcoming Encounters Date Type Department Care Team Description 10/26/2023 4:00 PM COMPUTER NUMERICAL CONTROL OPERATOR Appointment [facility] [address] [place], [place] [phone] Renetta Montoya, [facility] [address] [place], [place] [phone] documented as of this encounter Results * CT Head WO IV Cont (10/17/2022 6:05 PM COMPUTER NUMERICAL CONTROL OPERATOR) Anatomical Region Laterality Modality Head Computed Tomogra phy 10/17/2022 5:57 PM COMPUTER NUMERICAL CONTROL OPERATOR Impressions 10/17/2022 6:14 PM COMPUTER NUMERICAL CONTROL OPERATOR COMPARISON: ??CT 10/28/2013. TECHNIQUE: ??Images of the [...] of other part of head, initial encounter Contusion of other part of head, initial encounter documented in this encounter Care Teams Consumer Science Teacher Relationship Specialty Start Date End Date Monica Goznalez MD [address] [place] [address] PCP - General 11/27/09 documented as of this encounter
--- OUTSIDE RECORDS SUMMARY | 2023-10-13 11:22 | XMS_ITS | Encounter Summary ---
Author Name Unknown Organization [facility] Address [address] [place] [address] Care Team Providers Care Strategic Analyst Name Role Phone Monica Gonzalez MD Primary Care Provider [phone] Encounter Details Date Type Department Care Team Description 01/01/2018 Consent for Procedure/Treatment [facility] Department INFORMED CONSENT RECORD Social History Tobacco Use Types Packs/Day Years [...] Department Care Team Description 10/26/2023 4:00 PM BASIC ACOUSTIC ANALYST Appointment [facility] [address] [place] [address] Renetta Montoya, [facility] [address] [place] [address] documented as of this encounter Visit Diagnoses Not on filedocumented in this encounter Additional Health Concerns Infection Onset Date Last Indicated Resolved Time R/O COVID19 07/24/2020 07/24/2020 07/27/2020 3:28 AM BASIC ACOUSTIC ANALYST documented as of this encounter Care Teams Strategic Analyst Relationship Specialty Start Date End Date Monica Gonzalez MD [address], [place] [address] PCP - General 11/27/09 documented as of this encounter
--- OUTSIDE RECORDS SUMMARY | 2023-10-13 11:22 | XMS_ITS | Encounter Summary ---
Author Name Unknown Organization [facility] Address [address] [place] [address] Care Team Providers Care Used Car Make Ready Mechanic Name Role Phone Monica Gonzalez MD Primary Care Provider [phone] Encounter Details Date Type Department Care Team Description 12/29/2013 Correspondence [facility] Radiology [address] [place] [address] Radiology, Provider MRI SAFETY SHEET AND COMPATIBILITY FORM Social History Tobacco Use Types Packs/Day Years Used Date Smoking Tobacco: Former Cigarettes 0.5 1 0 10/03/2011 - 10/03/2012 Smokeless Tobacco: Never Alcohol Use Standard Drinks/Week Comments Yes 0 (1 standard drink = 0.6 oz pur e alcohol) maybe 2 times a month Sex and Gender Information Value Date Recorded Sex Assigned at Female 04/02/2021 3:17 PM CDT Gender Identity Female 04/02/2021 3:17 PM CDT Sexual Orientation Straight 04/02/2021 3: 17 PM CDT documented as of this encounter Progress Notes * Radiology, Provider - 12/29/2013 12:00 AM CDT documented in this encounter Plan of Treatment Upcoming Encounters Date Type Department Care Team Description 10/26/2023 4:00 PM RENTAL CAR FERRY DRIVER Appointment [facility] [address] [place], [place] [phone] Renetta Montoya, [facility] [address] [place], [place] [phone] documented as of this encounter Visit Diagnoses Not on filedocumented in this encounter Additional Health Concerns Infection Onset Date Last Indicated Resolved Time R/O COVID19 07/24/2020 07/24/2020 07/27/2020 3:28 AM RENTAL CAR FERRY DRIVER documented as of this encounter Care Teams Used Car Make Ready Mechanic Relationship Specialty Start Date End Date Monica Gonzalez MD [address] [place] [address] PCP - General 11/27/09 documented as of this encounter
--- OUTSIDE RECORDS SUMMARY | 2023-10-13 11:22 | XMS_ITS | Encounter Summary ---
Author Name Unknown Organization [facility] Address [address] [place] [address] Care Team Providers Care Credit Manager Name Role Phone Monica Gonzalez MD Primary Care Provider [phone] Encounter Details Date Type Department Care Team Description 02/27/1998 Orders Only Letty Pro MD [address] [facility] [place] [address] Social History Tobacco Use Types Packs/Day Years Used Date Smoking Tobacco: Never Assessed Sex and Gender Information Value Date Recorded Sex Assigned at Female 04/02/2021 3:17 PM CDT Gender Identity Female 04/02/2021 3:17 PM CDT Sexual Orientation Straight 04/02/2021 3: 17 PM CDT documented as of this encounter Plan of Treatment Upcoming Encounters Date Type Department Care Team Description 10/26/2023 4:00 PM COFFEE SUPERVISOR Appointment [facility] [address] [place] [address] [facility] [address] [place] [address] documented as of this encounter Visit Diagnoses Not on filedocumented in this encounter Additional Health Concerns Infection Onset Date Last Indicated Resolved Time R/O COVID19 07/24/2020 07/24/2020 07/27/2020 3:28 AM COFFEE SUPERVISOR documented as of this encounter Care Teams Credit Manager Relationship Specialty Start Date End Date Monica Gonzalez MD [address] [place] [address] PCP - General 11/27/09 documented as of this encounter
--- OUTSIDE RECORDS SUMMARY | 2023-10-13 11:22 | XMS_ITS | Encounter Summary ---
Author Name Unknown [facility] Address [address] [place] [address] Care Team Providers Care Smoking Pipe Coater Name Role Phone Monica Gonzalez MD Primary Care Provider Encounter Details Date Type Department Care Team Description 11/09/2013 Scanned History External to Transferred Record, Provider [facility] RECORDS Social History Tobacco Use Types Packs/Day Years Used Date Smoking Tobacco: Every Day Cigarettes 0.5 1 Started: 12/02/2011; Last attempted to quit: 12/01/2012 Smokeless Tobacco: Never Alcohol Use Standard Drinks/Week [...] Department Care Team Description 10/26/2023 4:00 PM WATERSHED COORDINATOR Appointment [facility] [address] [place] [address] Renetta Montoya, [facility] [address] [place] [address] documented as of this encounter Visit Diagnoses Not on filedocumented in this encounter Additional Health Concerns Infection Onset Date Last Indicated Resolved Time R/O COVID19 07/24/2020 07/24/2020 07/27/2020 3:28 AM WATERSHED COORDINATOR documented as of this encounter Care Teams Smoking Pipe Coater Relationship Specialty Start Date End Date Monica Gonzalez MD [address] [place] [address] PCP - General 11/27/09 documented as of this encounter
--- OUTSIDE RECORDS SUMMARY | 2023-10-13 11:22 | XMS_ITS | Encounter Summary ---
Author Name Unknown Organization [facility] Address [address] [place] [address] Care Team Providers Care Director Of Employer Services Name Role Phone Monica Gonzalez MD Primary Care Provider [phone] Encounter Details Date Type Department Care Team Description 03/22/1997 Orders Only Syeda Arango MD [address] [id number] Social History Tobacco Use Types Packs/Day Years Used Date Smoking Tobacco: Never Assessed Sex and Gender Information Value Date Recorded Sex Assigned at Female 04/02/2021 3:17 PM CDT Gender Identity Female 04/02/2021 3:17 PM CDT Sexual Orientation Straight 04/02/2021 3: 17 PM CDT documented as of this encounter Plan of Treatment Upcoming Encounters Date Type Department Care Team Description 10/26/2023 4:00 PM DYE BOARDING MACHINE OPERATOR Appointment [facility] [address] [place], [place] [phone] Renetta Montoya [facility] [address] [place] [address] documented as of this encounter Visit Diagnoses Not on filedocumented in this encounter Additional Health Concerns Infection Onset Date Last Indicated Resolved Time R/O COVID19 07/24/2020 07/24/2020 07/27/2020 3:28 AM DYE BOARDING MACHINE OPERATOR documented as of this encounter Care Teams Director Of Employer Services Relationship Specialty Start Date End Date Monica Gonzalez MD [address] [place] [address] PCP - General 11/27/09 documented as of this encounter
--- OUTSIDE RECORDS SUMMARY | 2023-10-13 11:22 | XMS_ITS | Encounter Summary ---
Author Name Unknown Organization [facility] Address [address] [place] [address] Care Team Providers Care Head Stock Transfer Clerk Name Role Phone Monica Gonzalez MD Primary Care Provider [phone] Encounter Details Date Type Department Care Team Description 05/25/1997 Orders Only Liz Jones Social History Tobacco Use Types Packs/Day Years Used Date Smoking Tobacco: Never Assessed Sex and Gender Information Value Date Recorded Sex Assigned at Female 04/02/2021 3:17 PM CDT Gender Identity Female 04/02/2021 3:17 PM CDT Sexual Orientation Straight 04/02/2021 3: 17 PM CDT documented as of this encounter Plan of Treatment Upcoming Encounters Date Type Department Care Team Description 10/26/2023 4:00 PM BISCUIT FACTORY WORKER Appointment [facility] [address] [place], [place] [phone] Renetta Montoya, [facility] [address] [place], [place] [phone] documented as of this encounter Visit Diagnoses Not on filedocumented in this encounter Additional Health Concerns Infection Onset Date Last Indicated Resolved Time R/O COVID19 07/24/2020 07/24/2020 07/27/2020 3:28 AM BISCUIT FACTORY WORKER documented as of this encounter Care Teams Head Stock Transfer Clerk Relationship Specialty Start Date End Date Monica Gonzalez MD [address] [place] [address] PCP - General 11/27/09 documented as of this encounter
--- OUTSIDE RECORDS SUMMARY | 2023-10-13 11:22 | XMS_ITS | Encounter Summary ---
Author Name Unknown Organization [facility] Address [address] [place] [address] Care Team Providers Care Draw Press Operator Name Role Phone Monica Gonzalez MD Primary Care Provider [phone] Encounter Details Date Type Department Care Team Description 10/17/1997 Orders Only Renetta Jaramillo Social History Tobacco Use Types Packs/Day Years Used Date Smoking Tobacco: Never Assessed Sex and Gender Information Value Date Recorded Sex Assigned at Female 04/02/2021 3:17 PM CDT Gender Identity Female 04/02/2021 3:17 PM CDT Sexual Orientation Straight 04/02/2021 3: 17 PM CDT documented as of this encounter Plan of Treatment Upcoming Encounters Date Type Department Care Team Description 10/26/2023 4:00 PM BAGGAGEMAN Appointment [facility] [address] [place] [address] Renetta Montoya [facility] [address] [place] [address] documented as of this encounter Visit Diagnoses Not on filedocumented in this encounter Additional Health Concerns Infection Onset Date Last Indicated Resolved Time R/O COVID19 07/24/2020 07/24/2020 07/27/2020 3:28 AM BAGGAGEMAN documented as of this encounter Care Teams Draw Press Operator Relationship Specialty Start Date End Date Monica Gonzalez MD [address] [place] [address] PCP - General 11/27/09 documented as of this encounter
--- OUTSIDE RECORDS SUMMARY | 2023-10-13 11:22 | XMS_ITS | Encounter Summary ---
Author Name Unknown Organization [facility] Address [address] [place] [address] Care Team Providers Care Rubber Goods Supervisor Name Role Phone Monica Gonzalez MD Primary Care Provider [phone] Encounter Details Date Type Department Care Team Description 09/05/1997 Orders Only Liz Jones Social History Tobacco [...] Department Care Team Description 10/26/2023 4:00 PM MEDICAL INSURANCE CODING SPECIALIST Appointment [facility] [address] [place], [place] [phone] Renetta Montoya, [facility] [address] [place], [place] [phone] documented as of this encounter Visit Diagnoses Not on filedocumented in this encounter Additional Health Concerns Infection Onset Date Last Indicated Resolved Time R/O COVID19 07/24/2020 07/24/2020 07/27/2020 3:28 AM MEDICAL INSURANCE CODING SPECIALIST documented as of this encounter Care Teams Rubber Goods Supervisor Relationship Specialty Start Date End Date Monica Gonzalez MD [address] [place] [address] PCP - General 11/27/09 documented as of this encounter
--- OUTSIDE RECORDS SUMMARY | 2023-10-13 11:22 | XMS_ITS | Encounter Summary ---
Author Name Unknown [facility] Address [address] [place] [address] Care Team Providers Care Apparel Trimmings Sales Representative Name Role Phone Monica Gonzalez MD Primary Care Provider [phone] Encounter Details Date Type Department Care Team Description 10/28/2013 Emergency Room External to Blanca Deluca SOB CHEST PAIN Social History Tobacco Use Types Packs/Day [...] as of this encounter Progress Notes * Chavez Sherman, Provider - 10/28/2013 12:00 AM CST documented in this encounter Plan of Treatment Upcoming Encounters Date Type Department Care Team Description 10/26/2023 4:00 PM ASPHALT PAVER OPERATOR Appointment [facility] [address] [place] [address] Renetta Montoya, [facility] [address] [place] [address] documented as of this encounter Visit Diagnoses Not on filedocumented in this encounter Additional Health Concerns Infection Onset Date Last Indicated Resolved Time R/O COVID19 07/24/2020 07/24/2020 07/27/2020 3:28 AM ASPHALT PAVER OPERATOR documented as of this encounter Care Teams Apparel Trimmings Sales Representative Relationship Specialty Start Date End Date Monica Gonzalez MD [address] [place] [address] PCP - General 11/27/09 documented as of this encounter
--- OUTSIDE RECORDS SUMMARY | 2023-10-13 11:22 | XMS_ITS | Encounter Summary ---
Author Name Unknown Organization [facility] Address [address] [place] [address] Care Team Providers Care Seed Yeast Operator Name Role Phone Monica Gonzalez MD Primary Care Provider [phone] Encounter Details Date Type Department Care Team Description 04/18/2014 Emergency Room External to [facility] ABDOMINAL PAIN Social History Tobacco Use Types Packs/Day [...] Department Care Team Description 10/26/2023 4:00 PM DISPLAY SCREEN FABRICATOR Appointment [facility] [address] [place] [address] Renetta Montoya, [facility] [address] [place] [address] documented as of this encounter Visit Diagnoses Not on filedocumented in this encounter Additional Health Concerns Infection Onset Date Last Indicated Resolved Time R/O COVID19 07/24/2020 07/24/2020 07/27/2020 3:28 AM DISPLAY SCREEN FABRICATOR documented as of this encounter Care Teams Seed Yeast Operator Relationship Specialty Start Date End Date Monica Gonzalez MD [address] [place] [address] PCP - General 11/27/09 documented as of this encounter
--- OUTSIDE RECORDS SUMMARY | 2023-10-13 11:22 | XMS_ITS | Encounter Summary ---
Author Name Unknown Organization [facility] Address [address], [place] [address] Care Team Providers Care Product Promoter Retail Pet Name Role Phone Monica Gonzalez MD Primary Care Provider [phone] Encounter Details Date Type Department Care Team Description 07/17/1997 Orders Only Bonnie Cao MD [address] [place], [place] [address] Social History Tobacco Use Types Packs/Day Years Used Date Smoking Tobacco: Never Assessed Sex and Gender Information Value Date Recorded Sex Assigned at Female 04/02/2021 3:17 PM CDT Gender Identity Female 04/02/2021 3:17 PM CDT Sexual Orientation Straight 04/02/2021 3: 17 PM CDT documented as of this encounter Plan of Treatment Upcoming Encounters Date Type Department Care Team Description 10/26/2023 4:00 PM NATIONAL FLATBED TRUCK DRIVER Appointment [facility] [address] [place] [address] Renetta Montoya [facility] [address] [place] [address] documented as of this encounter Visit Diagnoses Not on filedocumented in this encounter Additional Health Concerns Infection Onset Date Last Indicated Resolved Time R/O COVID19 07/24/2020 07/24/2020 07/27/2020 3:28 AM NATIONAL FLATBED TRUCK DRIVER documented as of this encounter Care Teams Product Promoter Retail Pet Relationship Specialty Start Date End Date Monica Gonzalez MD [address] [place] [address] PCP - General 11/27/09 documented as of this encounter
--- OUTSIDE RECORDS SUMMARY | 2023-10-13 11:22 | XMS_ITS | Encounter Summary ---
Author Name Unknown [facility] Address [address] [place] [address] Care Team Providers Care Material Control Clerk Name Role Phone Monica Gonzalez MD Primary Care Provider [phone] Reason for Visit * Reason Comments Refill VYVANSE 70 MG capsul e [Pharmacy Med Name: Vyvanse Oral Capsule 70 MG] Encounter Details Date Type Department Care Team Description 10/16/2022 Refill [facility] [address] [place] [address] [place] [address] [place] [address] Refill (VYVANSE 70 MG capsule [Pharmacy Med Name: Vyvanse Oral Capsule 70 MG]) Social History Tobacco Use Types Packs/Day Years [...] * Interface, Out Surescripts Prov Query - 10/16/2022 3:44 PM CST VYVANSE 70 MG capsule [Pharmacy Med Name: Vyvanse Oral Capsule 70 MG] ADHD (controlled substance) -> Medication cannot be delegated. Last qualifying visit: 01/20/2022 (with MONICA GONZALEZ) (A more recent visit (in Family Practice with ROS COSTA) was found) Next scheduled visit: None Last ordered by MONICA GONZALEZ: 09/04/2022 (42 days ago) QTY: 30, Refills: 0, Sig: take 1 capsule (70 mg) by mouth daily. (changed but equivalent) [employer] Embedded Refills, Reference: [id number], 10/16/2022 3:44:14 PM FELLER HAND, Pool: EG REFILL RN ([id number]) ER HAND * Interface, Out Food Runner Prov Query - 10/16/2022 3:44 PM CST No Careplan note found by [employer]. ER HAND documented in this encounter Plan of Treatment Upcoming Encounters Date Type Department Care Team Description 10/26/2023 4:00 PM FELLER HAND Appointment [facility] [address] [place], [place] [phone] Renetta Montoya, [facility] [address] [place] [address] documented as of this encounter Visit Diagnoses Diagnosis Attention deficit disorder, unspecified hyperactivity presence documented in this encounter Care Teams Material Control Clerk Relationship Specialty Start Date End Date Monica Gonzalez MD [address] [place] [address] PCP - General 11/27/09 documented as of this encounter
--- OUTSIDE RECORDS SUMMARY | 2023-10-13 11:22 | XMS_ITS | Encounter Summary ---
Author Name Unknown Organization [facility] Address [address], [place] [address] Care Team Providers Care Manager Heavy Duty Name Role Phone Monica Gonzalez MD Primary Care Provider [phone] Encounter Details Date Type Department Care Team Description 06/13/2013 Emergency Room External to [facility] Social History Tobacco Use Types Packs/Day Years Used Date Smoking Tobacco: Former Cigarettes 0.5 1 0 12/02/2011 - 12/01/2012 Smokeless Tobacco: Never Alcohol Use Standard Drinks/Week Comments Yes 0 (1 standard drink = 0.6 oz pur e alcohol) maybe 2 times a month Sex and Gender Information Value Date Recorded Sex Assigned at Female 04/02/2021 3:17 PM CDT Gender Identity Female 04/02/2021 3:17 PM CDT Sexual Orientation Straight 04/02/2021 3: 17 PM CDT documented as of this encounter Progress Notes * URGENCY ROOM, PROVIDER - 06/13/2013 12:00 AM CDT documented in this encounter Plan of Treatment Upcoming Encounters Date Type Department Care Team Description 10/26/2023 4:00 PM GRIP BOSS Appointment [facility] [address] [place], [place] [phone] Renetta Montoya, [facility] [address] [place] [address] documented as of this encounter Visit Diagnoses Not on filedocumented in this encounter Additional Health Concerns Infection Onset Date Last Indicated Resolved Time R/O COVID19 07/24/2020 07/24/2020 07/27/2020 3:28 AM GRIP BOSS documented as of this encounter Care Teams Manager Heavy Duty Relationship Specialty Start Date End Date Monica Gonzalez MD [address] [place] [address] PCP - General 11/27/09 documented as of this encounter
--- OUTSIDE RECORDS SUMMARY | 2023-10-13 11:22 | XMS_ITS | Encounter Summary ---
Author Name Unknown Organization [facility] Address [address] [place] [address] Care Team Providers Care Top Lift Compresser Name Role Phone Monica Gonzalez MD Primary Care Provider [phone] Encounter Details Date Type Department Care Team Description 12/23/2017 Correspondence [facility] Radiology [address] [place] [id number] Radiology, Provider MRI SAFETY SHEET AND COMPATIBILITY [...] Department Care Team Description 10/26/2023 4:00 PM BUILDING PRESSURE WASHER Appointment [facility] [address] [place] [address] Renetta Montoya, [facility] [address] [place] [address] documented as of this encounter Visit Diagnoses Not on filedocumented in this encounter Additional Health Concerns Infection Onset Date Last Indicated Resolved Time R/O COVID19 07/24/2020 07/24/2020 07/27/2020 3:28 AM BUILDING PRESSURE WASHER documented as of this encounter Care Teams Top Lift Compresser Relationship Specialty Start Date End Date Monica Gonzalez MD [address] [place] [address] PCP - General 11/27/09 documented as of this encounter
--- OUTSIDE RECORDS SUMMARY | 2023-10-13 11:22 | XMS_ITS | Encounter Summary ---
Author Name Unknown Organization [facility] Address [address] [address] Care Team Providers Care Train Inspector Name Role Phone Monica Gonzalez MD Primary Care Provider [phone] Encounter Details Date Type Department Care Team Description 09/22/2013 Emergency Room External to SHORTNESS OF BREATH Social History Tobacco Use Types Packs/Day Years [...] Progress Notes * URGENCY ROOM, PROVIDER - 09/22/2013 12:00 AM CST Y COATINGS INSTALLER documented in this encounter Plan of Treatment Upcoming Encounters Date Type Department Care Team Description 10/26/2023 4:00 PM EPOXY COATINGS INSTALLER Appointment [facility] [address] [place] [address] Renetta Montoya, [facility] [address] [place] [address] documented as of this encounter Visit Diagnoses Not on filedocumented in this encounter Additional Health Concerns Infection Onset Date Last Indicated Resolved Time R/O COVID19 07/24/2020 07/24/2020 07/27/2020 3:28 AM EPOXY COATINGS INSTALLER documented as of this encounter Care Teams Train Inspector Relationship Specialty Start Date End Date Moniac Gonzalez MD [address] [place] [address] PCP - General 11/27/09 documented as of this encounter
--- OUTSIDE RECORDS SUMMARY | 2023-10-13 11:22 | XMS_ITS | Encounter Summary ---
Author Name Unknown Organization [facility] Address [address] [place] [address] Care Team Providers Care Java Sybase Developer Name Role Phone Monica Gonzalez MD Primary Care Provider [phone] Encounter Details Date Type Department Care Team Description 02/14/1997 Orders Only [facility] [address] [place], [place] [id number] Social History Tobacco Use Types Packs/Day Years Used Date Smoking Tobacco: Never Assessed Sex and Gender Information Value Date Recorded Sex Assigned at Female 04/02/2021 3:17 PM CDT Gender Identity Female 04/02/2021 3:17 PM CDT Sexual Orientation Straight 04/02/2021 3: 17 PM CDT documented as of this encounter Plan of Treatment Upcoming Encounters Date Type Department Care Team Description 10/26/2023 4:00 PM BAR ROLLER Appointment [facility] [address] [place], [place] [phone] Renetta Montoya [facility] [address] [place] [address] documented as of this encounter Visit Diagnoses Not on filedocumented in this encounter Additional Health Concerns Infection Onset Date Last Indicated Resolved Time R/O COVID19 07/24/2020 07/24/2020 07/27/2020 3:28 AM BAR ROLLER documented as of this encounter Care Teams Java Sybase Developer Relationship Specialty Start Date End Date Monica Gonzalez MD [address] [place], [place] [id number] PCP - General 11/27/09 documented as of this encounter
--- OUTSIDE RECORDS SUMMARY | 2023-10-13 11:22 | XMS_ITS | Encounter Summary ---
Author Name Unknown Organization [facility] Address [address], [place] [address] Care Team Providers Care Hall Monitor Name Role Phone Monica Gonzalez MD Primary Care Provider [phone] Encounter Details Date Type Department Care Team Description 10/28/2013 Emergency Room External to COUGH Social History Tobacco Use Types Packs/Day Years [...] Progress Notes * URGENCY ROOM, PROVIDER - 10/28/2013 12:00 AM CST documented in this encounter Plan of Treatment Upcoming Encounters Date Type Department Care Team Description 10/26/2023 4:00 PM SENIOR USER EXPERIENCE ARCHITECT Appointment [facility] [address] [place] [address] Renetta Montoya, [facility] [address] [place] [address] documented as of this encounter Visit Diagnoses Not on filedocumented in this encounter Additional Health Concerns Infection Onset Date Last Indicated Resolved Time R/O COVID19 07/24/2020 07/24/2020 07/27/2020 3:28 AM SENIOR USER EXPERIENCE ARCHITECT documented as of this encounter Care Teams Hall Monitor Relationship Specialty Start Date End Date Monica Gonzalez MD [address] [place] [address] PCP - General 11/27/09 documented as of this encounter
--- OUTSIDE RECORDS SUMMARY | 2023-10-13 11:23 | XMS_ITS | Clinical Summary ---
Author Name Unknown Organization [facility] Address [place], [place] [address] Care Team Providers Care Laboratory Machinist Name Role Phone Monica Gonzalez MD Primary Care Provider [phone] Allergies No known active allergies Medications Medication Sig Dispensed Refills Start Date End Date Status buPROPion (WELLBUTRIN XL) 300 mg Extended-Release tablet 0 01/31/2022 Active cholecalciferol (VITAMIN D3) 5,000 unit capsule 0 Active copper (Paragard Intrauterine Copper) 380 square mm IUD Inject 1 Device intrauterine. 0 06/10/2017 06/08/2027 Active finasteride (PROSCAR) 5 mg tablet 0 01/31/2022 Active Denta 5000 Plus 1.1 % crea 0 03/06/2022 Active Vyvanse 70 mg capsule 0 02/24/2022 Act donnie losartan (COZAAR) 50 mg tablet 0 01/31/2022 Active spironolactone (ALDACTONE) 100 mg tablet 0 01/31/2022 Active topiramate (TOPAMAX) 50 mg tablet Take 1 Tablet by mouth in the morning and 1 Tablet in the evening. 0 04/08/2021 Active tretinoin 0.05 % 0.05 % cream Apply thin film to affected areas nightly 0 08/08/2021 Active valACYclovir (VALTREX) 1 gram tablet Take 500 mg by mouth. 0 08/12/2021 Active albuterol HFA (PRO-AIR; VENTOLIN; PROVENTIL) 90 mcg/actuation inhaler Inhale 2 Puffs by mouth every 4 hours if needed. 0 09/17/2021 Active Family History * Patient is adopted Medical History Relation Name Comments Unknown Father Unknown Mother Relation Name Status Comments Father Mother Social History Tobacco Use Types Packs/Day Years Used Date Smoking Tobacco: Former Smokeless Tobacco: Never Tobacco Cessation:Counseling Given: No Alcohol Use Standard Drinks/Week Comments No 0 (1 standard drink = 0.6 oz pur e alcohol) Sex and Gender Information Value Date Recorded Sex Assigned at Not on file Gender Identity Not on file Sexual Orientation Not on file Obstetrics History Last Filed Vital Signs Vital Sign Reading Time Taken Comments Blood Pressure 137/89 03/21/2022 5:37 PM CDT Pulse 91 03/21/2022 5:37 PM CDT Temperature 36.8 ??C (98.2 ??F) 03/21/2022 5:37 PM CD T Respiratory Rate 12 03/21/2022 5:37 PM CDT Oxygen Saturation 100% 03/21/2022 5:37 PM CDT Inhaled Oxygen Concentration - - Weight 68 kg (150 lb) 03/21/2022 5:37 PM CDT Height 172.7 cm (5' 8) 03/21/2022 5:37 PM CDT Body Mass Index 22.81 03/21/2022 5:37 PM CDT Plan of Treatment Health Maintenance Due Date Last Done Comments Tdap 12/06/1983 Depression screening for age 12+ 1984 HIV for age 15-65 12/06/1987 BMI (ht and wt on same day) for age 18+ 1990 Hepatitis C screening for age 18-79 1990 Tetanus booster 1992 Pap test for age 21-65 1993 Colonoscopy through age 75 2017 Lipids for age 45-75 2017 Mammogram for age 45-75 2017 COVID-19 vaccine series (3 - Booster for Gifty series) 09/24/2021 07/30/2021, 12/25/2020 Zoster (shingles) series for age 50+ (1 of 2) 2022 Influenza for age 50-64 05/22/2023 Care Teams Laboratory Machinist Relationship Specialty Start Date End Date Monica Gonzalez MD [address] [place] [address] [address] [address] PCP - General Family Practice 03/21/22
--- OUTSIDE RECORDS SUMMARY | 2023-10-13 11:23 | XMS_ITS | Encounter Summary ---
Author Name Unknown Organization [facility] Address [address] [place] [address] Care Team Providers Care Actuarial Science Professor Name Role Phone Monica Gonzalez MD Primary Care Provider [phone] Encounter Details Date Type Department Care Team Description 01/30/1995 Orders Only Letty Pro MD [address] [facility] [place] [address] Social History Tobacco Use Types Packs/Day Years Used Date Smoking Tobacco: Never Assessed Sex and Gender Information Value Date Recorded Sex Assigned at Female 04/02/2021 3:17 PM CDT Gender Identity Female 04/02/2021 3:17 PM CDT Sexual Orientation Straight 04/02/2021 3: 17 PM CDT documented as of this encounter Plan of Treatment Upcoming Encounters Date Type Department Care Team Description 10/26/2023 4:00 PM LEADITE HEATER Appointment [facility] [address] [place] [address] [address] [facility] [address] [place] [address] documented as of this encounter Visit Diagnoses Not on filedocumented in this encounter Additional Health Concerns Infection Onset Date Last Indicated Resolved Time R/O COVID19 07/24/2020 07/24/2020 07/27/2020 3:28 AM LEADITE HEATER documented as of this encounter Care Teams Actuarial Science Professor Relationship Specialty Start Date End Date Monica Gonzalez MD [address] [place] [address] PCP - General 11/27/09 documented as of this encounter
--- OUTSIDE RECORDS SUMMARY | 2023-10-13 11:23 | XMS_ITS | Encounter Summary ---
Author Name Unknown Organization [facility] Address [address] [place] [address] Care Team Providers Care Mailing Machine Helper Name Role Phone Monica Gonzalez MD Primary Care Provider [phone] Encounter Details Date Type Department Care Team Description 05/19/1996 Orders Only Syeda Arango MD [address] [id number] Social History Tobacco Use Types Packs/Day Years Used Date Smoking Tobacco: Never Assessed Sex and Gender Information Value Date Recorded Sex Assigned at Female 04/02/2021 3:17 PM CDT Gender Identity Female 04/02/2021 3:17 PM CDT Sexual Orientation Straight 04/02/2021 3: 17 PM CDT documented as of this encounter Plan of Treatment Upcoming Encounters Date Type Department Care Team Description 10/26/2023 4:00 PM WEB MERCHANDISER Appointment [facility] [address] [place], [place] [phone] Renetta Montoya [facility] [address] [place] [address] documented as of this encounter Visit Diagnoses Not on filedocumented in this encounter Additional Health Concerns Infection Onset Date Last Indicated Resolved Time R/O COVID19 07/24/2020 07/24/2020 07/27/2020 3:28 AM WEB MERCHANDISER documented as of this encounter Care Teams Mailing Machine Helper Relationship Specialty Start Date End Date Monica Gonzalez MD [address] [place] [address] PCP - General 11/27/09 documented as of this encounter
--- OUTSIDE RECORDS SUMMARY | 2023-10-13 11:23 | XMS_ITS | Encounter Summary ---
Author Name Unknown Organization [facility] Address [address] [place] [address] Care Team Providers Care Linen Aide Name Role Phone Monica Gonzalez MD Primary Care Provider Encounter Details Date Type Department Care Team Description 12/17/1994 Orders Only Edvin Farrell MD [address] [place], [place] [address] Social History Tobacco Use Types Packs/Day Years Used Date Smoking Tobacco: Never Assessed Sex and Gender Information Value Date Recorded Sex Assigned at Female 04/02/2021 3:17 PM CDT Gender Identity Female 04/02/2021 3:17 PM CDT Sexual Orientation Straight 04/02/2021 3: 17 PM CDT documented as of this encounter Plan of Treatment Upcoming Encounters Date Type Department Care Team Description 10/26/2023 4:00 PM TUBE TESTER Appointment [facility] [address] [place] [address] [facility] [address] [place] [address] documented as of this encounter Visit Diagnoses Not on filedocumented in this encounter Additional Health Concerns Infection Onset Date Last Indicated Resolved Time R/O COVID19 07/24/2020 07/24/2020 07/27/2020 3:28 AM TUBE TESTER documented as of this encounter Care Teams Linen Aide Relationship Specialty Start Date End Date Monica Gonzalez MD [address] [place] [address] PCP - General 11/27/09 documented as of this encounter
--- OUTSIDE RECORDS SUMMARY | 2023-10-13 11:23 | XMS_ITS | Encounter Summary ---
Author Name Unknown Organization [facility] Address [address] [place] [address] Care Team Providers Care Shale Miner Blasting Name Role Phone Monica Gonzalez MD Primary Care Provider [phone] Encounter Details Date Type Department Care Team Description 05/07/1995 Orders Only Ella Hutchinson MD [facility] [address] [place] [address], [address] [place], [place] [id number] Social History Tobacco Use Types Packs/Day Years Used Date Smoking Tobacco: Never Assessed Sex and Gender Information Value Date Recorded Sex Assigned at Female 04/02/2021 3:17 PM CDT Gender Identity Female 04/02/2021 3:17 PM CDT Sexual Orientation Straight 04/02/2021 3: 17 PM CDT documented as of this encounter Plan of Treatment Upcoming Encounters Date Type Department Care Team Description 10/26/2023 4:00 PM CNC MACHINE OPERATOR Appointment [facility] [address] [place] [address] [address] [facility] [address] [place] [address] documented as of this encounter Visit Diagnoses Not on filedocumented in this encounter Additional Health Concerns Infection Onset Date Last Indicated Resolved Time R/O COVID19 07/24/2020 07/24/2020 07/27/2020 3:28 AM CNC MACHINE OPERATOR documented as of this encounter Care Teams Shale Miner Blasting Relationship Specialty Start Date End Date Monica Gonzalez MD [address] [place] [address] PCP - General 11/27/09 documented as of this encounter
--- OUTSIDE RECORDS SUMMARY | 2023-10-13 11:23 | XMS_ITS | Encounter Summary ---
Author Name Unknown Organization [facility] Address [address], [place] [address] Care Team Providers Care Industrial Paramedic Name Role Phone Monica Gonzalez MD Primary Care Provider [phone] Encounter Details Date Type Department Care Team Description 07/20/1995 Orders Only Aleksander Garcia [place] [address], [address] Social History Tobacco Use Types Packs/Day Years Used Date Smoking Tobacco: Never Assessed Sex and Gender Information Value Date Recorded Sex Assigned at Female 04/02/2021 3:17 PM CDT Gender Identity Female 04/02/2021 3:17 PM CDT Sexual Orientation Straight 04/02/2021 3: 17 PM CDT documented as of this encounter Plan of Treatment Upcoming Encounters Date Type Department Care Team Description 10/26/2023 4:00 PM VIDEO GAME CREATOR Appointment [facility] [address] [place] [address] Renetta Montoya [facility] [address] [place] [address] documented as of this encounter Visit Diagnoses Not on filedocumented in this encounter Additional Health Concerns Infection Onset Date Last Indicated Resolved Time R/O COVID19 07/24/2020 07/24/2020 07/27/2020 3:28 AM VIDEO GAME CREATOR documented as of this encounter Care Teams Industrial Paramedic Relationship Specialty Start Date End Date Monica Gonzalez MD [address] [place] [address] PCP - General 11/27/09 documented as of this encounter
--- OUTSIDE RECORDS SUMMARY | 2023-10-13 11:23 | XMS_ITS | Encounter Summary ---
Author Name Unknown Organization [facility] Address [address] [place] [address] Care Team Providers Care Partridge Farmer Name Role Phone Monica Gonzalez MD Primary Care Provider [phone] Encounter Details Date Type Department Care Team Description 02/03/1996 Orders Only Ella Hutchinson MD [facility] [address] [place] [address], [address] [place], [place] [phone] Social History Tobacco Use Types Packs/Day Years Used Date Smoking Tobacco: Never Assessed Sex and Gender Information Value Date Recorded Sex Assigned at Female 04/02/2021 3:17 PM CDT Gender Identity Female 04/02/2021 3:17 PM CDT Sexual Orientation Straight 04/02/2021 3: 17 PM CDT documented as of this encounter Plan of Treatment Upcoming Encounters Date Type Department Care Team Description 10/26/2023 4:00 PM FUNCTIONAL ARCHITECT Appointment [facility] [address] [place] [address] Renetta Montoya [facility] [address] [place] [address] documented as of this encounter Visit Diagnoses Not on filedocumented in this encounter Additional Health Concerns Infection Onset Date Last Indicated Resolved Time R/O COVID19 07/24/2020 07/24/2020 07/27/2020 3:28 AM FUNCTIONAL ARCHITECT documented as of this encounter Care Teams Partridge Farmer Relationship Specialty Start Date End Date Monica Gonzalez MD [address] [place] [address] PCP - General 11/27/09 documented as of this encounter
--- OUTSIDE RECORDS SUMMARY | 2023-10-13 11:23 | XMS_ITS | Encounter Summary ---
Author Name Unknown Organization [facility] Address [address], [place] [address] Care Team Providers Care Event Specialist Food Demonstrator Name Role Phone Monica Gonzalez MD Primary Care Provider [phone] Encounter Details Date Type Department Care Team Description 02/17/1996 Orders Only Edvin Farrell MD [address] [place], [place] [address] Social History Tobacco Use Types Packs/Day Years Used Date Smoking Tobacco: Never Assessed Sex and Gender Information Value Date Recorded Sex Assigned at Female 04/02/2021 3:17 PM CDT Gender Identity Female 04/02/2021 3:17 PM CDT Sexual Orientation Straight 04/02/2021 3: 17 PM CDT documented as of this encounter Plan of Treatment Upcoming Encounters Date Type Department Care Team Description 10/26/2023 4:00 PM FAMILY SERVICE AIDE Appointment [facility] [address] [place] [address] Renetta Montoya [facility] [address] [place] [address] documented as of this encounter Visit Diagnoses Not on filedocumented in this encounter Additional Health Concerns Infection Onset Date Last Indicated Resolved Time R/O COVID19 07/24/2020 07/24/2020 07/27/2020 3:28 AM FAMILY SERVICE AIDE documented as of this encounter Care Teams Event Specialist Food Demonstrator Relationship Specialty Start Date End Date Monica Gonzalez MD [address] [place] [address] PCP - General 11/27/09 documented as of this encounter
--- OUTSIDE RECORDS SUMMARY | 2023-10-13 11:23 | XMS_ITS | Encounter Summary ---
Author Name Unknown Organization [facility] Address [address] [place] [address] Care Team Providers Care Fitness Centre Manager Name Role Phone Monica Gonzalez MD Primary Care Provider [phone] Encounter Details Date Type Department Care Team Description 01/15/1996 Orders Only Taina Frausto, DATABASE ADMINISTRATOR, OPTOMETRIC TECHNOLOGIST [address] [address] Social History Tobacco Use Types Packs/Day Years Used Date Smoking Tobacco: Never Assessed Sex and Gender Information Value Date Recorded Sex Assigned at Female 04/02/2021 3:17 PM CDT Gender Identity Female 04/02/2021 3:17 PM CDT Sexual Orientation Straight 04/02/2021 3: 17 PM CDT documented as of this encounter Plan of Treatment Upcoming Encounters Date Type Department Care Team Description 10/26/2023 4:00 PM PMO ANALYST Appointment [facility] [address] [place] [address] Renetta Montoya [facility] [address] [place] [address] documented as of this encounter Visit Diagnoses Not on filedocumented in this encounter Additional Health Concerns Infection Onset Date Last Indicated Resolved Time R/O COVID19 07/24/2020 07/24/2020 07/27/2020 3:28 AM PMO ANALYST documented as of this encounter Care Teams Fitness Centre Manager Relationship Specialty Start Date End Date Monica Gonzalez MD [address] [place] [address] PCP - General 11/27/09 documented as of this encounter
--- OUTSIDE RECORDS SUMMARY | 2023-10-13 11:23 | XMS_ITS | Encounter Summary ---
Author Name Unknown Organization [facility] Address [address] [place] [address] Care Team Providers Care Hair Spring Cutter Name Role Phone Monica Gonzalez MD Primary Care Provider [phone] Encounter Details Date Type Department Care Team Description 09/30/1996 Orders Only Ella Hutchinson MD [facility] [address] [place] [address], [address] [place], [place] [phone] Social History Tobacco Use Types Packs/Day Years Used Date Smoking Tobacco: Never Assessed Sex and Gender Information Value Date Recorded Sex Assigned at Female 04/02/2021 3:17 PM CDT Gender Identity Female 04/02/2021 3:17 PM CDT Sexual Orientation Straight 04/02/2021 3: 17 PM CDT documented as of this encounter Plan of Treatment Upcoming Encounters Date Type Department Care Team Description 10/26/2023 4:00 PM INSTRUMENT TECH Appointment [facility] [address] [place] [address] Renetta Montoya [facility] [address] [place] [address] documented as of this encounter Visit Diagnoses Not on filedocumented in this encounter Additional Health Concerns Infection Onset Date Last Indicated Resolved Time R/O COVID19 07/24/2020 07/24/2020 07/27/2020 3:28 AM INSTRUMENT TECH documented as of this encounter Care Teams Hair Spring Cutter Relationship Specialty Start Date End Date Monica Gonzalez MD [address] [place] [address] PCP - General 11/27/09 documented as of this encounter
--- OUTSIDE RECORDS SUMMARY | 2023-10-13 11:23 | XMS_ITS | Encounter Summary ---
Author Name Unknown Organization [facility] Address [address], [place] [address] Care Team Providers Care Records Coordinator Name Role Phone Monica Gonzalez MD Primary Care Provider Encounter Details Date Type Department Care Team Description 04/12/1996 Orders Only Iesha Boyd, [facility] PNEUMATIC, DIRECTOR OF MARKETING ANALYTICS Social History Tobacco Use Types Packs/Day Years Used Date Smoking Tobacco: Never Assessed Sex and Gender Information Value Date Recorded Sex Assigned at Female 04/02/2021 3:17 PM CDT Gender Identity Female 04/02/2021 3:17 PM CDT Sexual Orientation Straight 04/02/2021 3: 17 PM CDT documented as of this encounter Plan of Treatment Upcoming Encounters Date Type Department Care Team Description 10/26/2023 4:00 PM BLENDING OPERATOR Appointment [facility] [address] [place] [address] Renetta Montoya [facility] [address] [place], [place] [id number] documented as of this encounter Visit Diagnoses Not on filedocumented in this encounter Additional Health Concerns Infection Onset Date Last Indicated Resolved Time R/O COVID19 07/24/2020 07/24/2020 07/27/2020 3:28 AM BLENDING OPERATOR documented as of this encounter Care Teams Records Coordinator Relationship Specialty Start Date End Date Monica Gonzalez MD [address] [place] [address] PCP - General 11/27/09 documented as of this encounter
--- OUTSIDE RECORDS SUMMARY | 2023-10-13 11:23 | XMS_ITS | Encounter Summary ---
Author Name Unknown Organization [facility] Address [address] [place] [address] Care Team Providers Care Tile Layer Supervisor Name Role Phone Monica Gonzalez MD Primary Care Provider [phone] Encounter Details Date Type Department Care Team Description 07/12/1996 Orders Only Letty Pro MD [address] [facility] [place] [address] Social History Tobacco Use Types Packs/Day Years Used Date Smoking Tobacco: Never Assessed Sex and Gender Information Value Date Recorded Sex Assigned at Female 04/02/2021 3:17 PM CDT Gender Identity Female 04/02/2021 3:17 PM CDT Sexual Orientation Straight 04/02/2021 3: 17 PM CDT documented as of this encounter Plan of Treatment Upcoming Encounters Date Type Department Care Team Description 10/26/2023 4:00 PM UPPER AND BOTTOM LACER HAND Appointment [facility] [address] [place] [address] Renetta Montoya [facility] [address] [place] [address] documented as of this encounter Visit Diagnoses Not on filedocumented in this encounter Additional Health Concerns Infection Onset Date Last Indicated Resolved Time R/O COVID19 07/24/2020 07/24/2020 07/27/2020 3:28 AM UPPER AND BOTTOM LACER HAND documented as of this encounter Care Teams Tile Layer Supervisor Relationship Specialty Start Date End Date Monica Gonzalez MD [address] [place] [address] PCP - General 11/27/09 documented as of this encounter
--- OUTSIDE RECORDS SUMMARY | 2023-10-13 11:23 | XMS_ITS | Encounter Summary ---
Author Name Unknown Organization [facility] Address [address] [place] [address] Care Team Providers Care Vp Revenue Cycle Name Role Phone Monica Gonzalez MD Primary Care Provider [phone] Encounter Details Date Type Department Care Team Description 10/25/1996 Orders Only [facility] [address], [id number] Social History Tobacco Use Types Packs/Day Years Used Date Smoking Tobacco: Never Assessed Sex and Gender Information Value Date Recorded Sex Assigned at Female 04/02/2021 3:17 PM CDT Gender Identity Female 04/02/2021 3:17 PM CDT Sexual Orientation Straight 04/02/2021 3: 17 PM CDT documented as of this encounter Plan of Treatment Upcoming Encounters Date Type Department Care Team Description 10/26/2023 4:00 PM TECHNICAL SUPPORT TECHNICIAN Appointment [facility] [address] [place], [place] [id number] Renetta Montoya [facility] [address] [place] [address] documented as of this encounter Visit Diagnoses Not on filedocumented in this encounter Additional Health Concerns Infection Onset Date Last Indicated Resolved Time R/O COVID19 07/24/2020 07/24/2020 07/27/2020 3:28 AM TECHNICAL SUPPORT TECHNICIAN documented as of this encounter Care Teams Vp Revenue Cycle Relationship Specialty Start Date End Date Monica Gonzalez MD [address] [id number] PCP - General 11/27/09 documented as of this encounter
--- OUTSIDE RECORDS SUMMARY | 2023-10-13 11:23 | XMS_ITS | Encounter Summary ---
Author Name Unknown Organization [facility] Address [address], [place] [address] Care Team Providers Care Clinical Support Associate Name Role Phone Monica Gonzalez MD Primary Care Provider [phone] Encounter Details Date Type Department Care Team Description 11/18/1995 Orders Only Aleksander Garcia [address] [address], [id number] Social History Tobacco Use Types Packs/Day Years Used Date Smoking Tobacco: Never Assessed Sex and Gender Information Value Date Recorded Sex Assigned at Female 04/02/2021 3:17 PM CDT Gender Identity Female 04/02/2021 3:17 PM CDT Sexual Orientation Straight 04/02/2021 3: 17 PM CDT documented as of this encounter Plan of Treatment Upcoming Encounters Date Type Department Care Team Description 10/26/2023 4:00 PM TRANSPLANT NURSE PRACTITIONER Appointment [facility] [address] [place] [address] Renetta Montoya [facility] [address] [place] [address] documented as of this encounter Visit Diagnoses Not on filedocumented in this encounter Additional Health Concerns Infection Onset Date Last Indicated Resolved Time R/O COVID19 07/24/2020 07/24/2020 07/27/2020 3:28 AM TRANSPLANT NURSE PRACTITIONER documented as of this encounter Care Teams Clinical Support Associate Relationship Specialty Start Date End Date Monica Gonzalez MD [address] [place] [address] PCP - General 11/27/09 documented as of this encounter
--- NOTE | 2023-10-13 11:30 | CRLHL7_ITS ---
For Patients: As a result of the Cures Act, medical imaging exams and procedure reports are released immediately into your electronic medical record. You may view this report before your referring provider. If you have questions, please contact your health care provider. BILATERAL SCREENING MAMMOGRAM WITH COMPUTER-AIDED DETECTION AND TOMOSYNTHESIS TECHNIQUE: CC and MLO views were obtained. These mammographic images have been obtained using full-field digital technique. These mammographic images were interpreted with the benefit of computer-aided detection. Breast Tomosynthesis was used in this interpretation. COMPARISON FILM: 10/02/22, 08/08/21, 04/12/20. FINDINGS: There are scattered areas of fibroglandular density IMPRESSION: There is no radiographic evidence for malignancy. ASSESSMENT: BI-RADS Category 1: Negative RECOMMENDATION: Routine screening mammogram in 1 year. A lay language report of this examination will be provided to the patient. Nael Verdin M.D. Diagnostic Radiologist [email or web address] FANNIE/marlen / be/Dictated by: Nael Verdin MD @ 10/13/2023 12:09:00 PM (Electronically Signed)
== END 2023-10-13 11:15 | disposition home or self-care (01) ==
PROVIDERS: Visit Provider Family Medicine
DX: Z12.31 Encounter for screening mammogram for malignant neoplasm of breast (principal)
CPT/HCPCS: 77063; 77067

== ENCOUNTER 2024-10-21 13:49 | Outpatient (CLI) | payer MEDICAID, SELFPAY ==
--- NOTE | 2024-10-21 14:00 | CRLHL7_ITS ---
For Patients: As a result of the Century Cures Act, medical imaging exams and procedure reports are released immediately into your electronic medical record. You may view this report before your referring provider. If you have questions, please contact your health care provider. BILATERAL SCREENING MAMMOGRAM WITH COMPUTER-AIDED DETECTION AND TOMOSYNTHESIS TECHNIQUE: CC and MLO views were obtained. These mammographic images have been obtained using full-field digital technique. These mammographic images were interpreted with the benefit of computer-aided detection. Breast Tomosynthesis was used in this interpretation. COMPARISON FILM: 10/13/23, 10/02/22, 08/08/21. FINDINGS: There are scattered areas of fibroglandular density. IMPRESSION: There is no radiographic evidence for malignancy. ASSESSMENT: BI-RADS Category 1: Negative RECOMMENDATION: Routine screening mammogram in 1 year. A lay language report of this examination will be provided to the patient. Nael Verdin M.D. Diagnostic Radiologist [email or web address] SP/Dictated by: Nael Verdin MD @ 10/24/2024 8:56:00 AM (Electronically Signed)
== END 2024-10-21 13:50 | disposition home or self-care (01) ==
LOC: MAMMO 13:49
PROVIDERS: Visit Provider Family Medicine
DX: Z12.31 Encounter for screening mammogram for malignant neoplasm of breast (principal)
CPT/HCPCS: 77063; 77067